=== PATIENT | female | born 1945 | race African-American/Black ===

== ENCOUNTER 2016-09-09 23:15 | Emergency (ER) | payer MEDICARE ==
[2016-09-09 23:43] LABS: BASOPHILS 0.2 % (0-2); EOSINOPHILS 4.3 % (0-7); HEMATOCRIT 33.3 % (36.0-48.0); HEMOGLOBIN 10.8 g/dL (12-16); IMMATURE GRANULOCYTES 0.2 % (0-5); LYMPHOCYTES 43.5 % (15-50); MCH 29.2 pg (26.0-34.0); MCHC 32.4 g/dL (31.0-37.0); MEAN PLATELET VOLUME 10.9 fL (7.4-10.4); MONOCYTES 5.5 % (2-11); NEUTROPHILS 46.3 % (40-80); PLATELET COUNT 204 10x3/uL (130-400); RDW 12.8 % (11.5-14.5); WBC 6.3 10x3/uL (4.8-10.8)
[2016-09-09 23:59] LABS: ALBUMIN 3.7 g/dL (3.4-5.0); ALKALINE PHOSPHATASE 94 U/L (46-116); ALT (SGPT) 15 U/L (10-68); CALC OSMOLALITY 282 mosm/kg (275-300); CALCIUM 8.2 mg/dL (8.5-10.1); CARBON DIOXIDE 28.2 mmol/L (21.0-32.0); CHLORIDE - SERUM 103 mmol/L (98-107); CREATININE - SERUM 0.9 mg/dL (0.6-1.3); GLUCOSE 158 mg/dL (74-106); POTASSIUM - SERUM 3.2 mmol/L (3.5-5.1); PROTEIN - SERUM 7.5 g/dL (6.4-8.2); SODIUM 142 mmol/L (136-145); UREA NITROGEN 5 mg/dL (7-18); eGFR NON AFRICAN AMERICAN 66 mL/min (90-120)
[2016-09-10 00:11] LABS: CHOL - HDL RATIO 3.9 ratio (2.3-4.1); CHOLESTEROL, TOTAL 139 mg/dL (0-200); CKMB 0.8 U/L (0.0-3.6); CREATINE KINASE 178 UL (21-215); HDL CHOLESTEROL 36 mg/dL (32-96); LDL CHOLESTEROL 68 mg/dL (0-100); LDL-HDL RATIO 1.9 ratio (1.5-3.5); TRIGLYCERIDE 176 mg/dL (30-200); TROPONIN-I < 0.017 ng/mL (0.000-0.060)
== END 2016-09-10 00:59 | disposition home or self-care (01) ==
LOC: D.ER 23:15
PROVIDERS: Emergency Medicine
DX: K29.70 Gastritis, unspecified, without bleeding (principal); R94.31 Abnormal electrocardiogram [ECG] [EKG]; I25.2 Old myocardial infarction; E11.9 Type 2 diabetes mellitus without complications

== ENCOUNTER 2016-12-22 22:24 | Emergency (ER) | payer MEDICARE | END 2016-12-23 00:52 | disposition home or self-care (01) | LOC: D.ER 22:24 | DX: R42 Dizziness and giddiness (principal) ==

== ENCOUNTER 2017-01-04 18:33 | Emergency (ER) | payer MEDICARE ==
[2017-01-04 20:34] LABS: BASOPHILS 0.2 % (0-2); EOSINOPHILS 1.1 % (0-7); HEMATOCRIT 33.3 % (36.0-48.0); HEMOGLOBIN 10.7 g/dL (12-16); IMMATURE GRANULOCYTES 0.2 % (0-5); LYMPHOCYTES 30.1 % (15-50); MCH 29.5 pg (26.0-34.0); MCHC 32.1 g/dL (31.0-37.0); MCV 91.7 fL (80.0-100.0); MEAN PLATELET VOLUME 10.3 fL (7.4-10.4); MONOCYTES 3.9 % (2-11); NEUTROPHILS 64.5 % (40-80); PLATELET COUNT 187 10x3/uL (130-400); RBC 3.63 10x6/uL (4.00-5.40); RDW 13.1 % (11.5-14.5); WBC 5.4 10x3/uL (4.8-10.8)
[2017-01-04 20:55] LABS: ALBUMIN 3.7 g/dL (3.4-5.0); ANION GAP 11.9 mmol/L (8-16); BILIRUBIN - TOTAL 0.19 mg/dL (0.2-1.3); CALCIUM 8.7 mg/dL (8.5-10.1); CARBON DIOXIDE 29.1 mmol/L (21.0-32.0); PROTEIN - SERUM 7.8 g/dL (6.4-8.2)
== END 2017-01-04 21:11 | disposition home or self-care (01) ==
LOC: D.ER 18:33
PROVIDERS: Emergency Medicine
DX: K21.9 Gastro-esophageal reflux disease without esophagitis (principal)

== ENCOUNTER 2017-05-28 16:21 | Emergency (ER) | payer MEDICARE, MEDICAID ==
[2017-05-28 16:55] LABS: BASOPHILS 0.1 % (0-2); HEMATOCRIT 33.9 % (36.0-48.0); IMMATURE GRANULOCYTES 0.1 % (0-5); LYMPHOCYTES 34.2 % (15-50); MCH 29.9 pg (26.0-34.0); MCHC 32.4 g/dL (31.0-37.0); MCV 92.1 fL (80.0-100.0); MEAN PLATELET VOLUME 10.3 fL (7.4-10.4); MONOCYTES 6.5 % (2-11); NEUTROPHILS 56.1 % (40-80); PLATELET COUNT 209 10x3/uL (130-400); RBC 3.68 10x6/uL (4.00-5.40); RDW 13.4 % (11.5-14.5); WBC 8.1 10x3/uL (4.8-10.8)
[2017-05-28 17:00] LABS: APPEARANCE CLEAR (CLEAR); BILIRUBIN NEGATIVE (NEGATIVE); COLOR YELLOW (YELLOW); GLUCOSE NEGATIVE (NEGATIVE); KETONE NEGATIVE (NEGATIVE); NITRITE NEGATIVE (NEGATIVE); PROTEIN NEGATIVE (NEGATIVE); SPECIFIC GRAVITY 1.005 (1.005-1.020); UROBILINOGEN NORMAL (NORMAL)
[2017-05-28 17:13] LABS: ALBUMIN 3.5 g/dL (3.4-5.0); ANION GAP 11.7 mmol/L (8-16); BILIRUBIN - TOTAL 0.44 mg/dL (0.2-1.3); CALCIUM 8.6 mg/dL (8.5-10.1); CARBON DIOXIDE 29.9 mmol/L (21.0-32.0); CREATININE - SERUM 1.3 mg/dL (0.6-1.3); POTASSIUM - SERUM 3.6 mmol/L (3.5-5.1); PROTEIN - SERUM 7.8 g/dL (6.4-8.2)
== END 2017-05-28 18:39 | disposition home or self-care (01) ==
LOC: D.ER 16:21
PROVIDERS: Family Medicine
DX: R10.9 Unspecified abdominal pain (principal); K29.00 Acute gastritis without bleeding; K21.9 Gastro-esophageal reflux disease without esophagitis

== ENCOUNTER 2017-08-08 00:27 | Emergency (ER) | payer MEDICARE, MEDICAID ==
[~2017-08-08] VITALS: Ht 162.6 cm; Wt 92.1 kg
[2017-08-08 00:36] VITALS: Ht 162.6 cm; Wt 92.1 kg
[2017-08-08] MEDS ORDERED: PLAVIX75 MG PO (00:38)
[2017-08-08 01:51] VITALS: BP 162/76
== END 2017-08-08 01:55 | disposition home or self-care (01) ==
LOC: D.ER 00:27
DX: K59.00 Constipation, unspecified (principal); R10.30 Lower abdominal pain, unspecified; H40.9 Unspecified glaucoma

== ENCOUNTER 2017-08-25 11:01 | Emergency (ER) | payer MEDICARE, MEDICAID ==
[~2017-08-25] VITALS: Ht 162.6 cm; Wt 93.6 kg
[~2017-08-25 11:01] MED LIST: PLAVIX75 MG PO
[2017-08-25 11:18] VITALS: BP 116/86; Ht 162.6 cm; Wt 93.6 kg
[2017-11-05 23:11] VITALS: Ht 162.6 cm; Wt 93.6 kg
== END 2017-08-25 12:47 | disposition left against medical advice (07) ==
LOC: D.ER 11:01
DX: M79.602 Pain in left arm (principal)

== ENCOUNTER 2017-08-30 10:46 | Emergency (ER) | payer MEDICARE, MEDICAID ==
[~2017-08-30] VITALS: Ht 162.6 cm; Wt 93.6 kg
[2017-08-30 10:52] VITALS: Ht 162.6 cm; Wt 93.6 kg
[2017-08-30 11:10] LABS: APPEARANCE HAZY (CLEAR); COLOR YELLOW (YELLOW); SPECIFIC GRAVITY 1.005 (1.005-1.020)
[2017-08-30 11:11] LABS: BILIRUBIN NEGATIVE (NEGATIVE); GLUCOSE NEGATIVE (NEGATIVE); KETONE NEGATIVE (NEGATIVE); NITRITE NEGATIVE (NEGATIVE); PROTEIN NEGATIVE (NEGATIVE); UROBILINOGEN NORMAL (NORMAL)
[2017-08-30 11:22] LABS: BASOPHILS 0.2 % (0-2); EOSINOPHILS 3.3 % (0-7); HEMATOCRIT 33.5 % (36.0-48.0); IMMATURE GRANULOCYTES 0.2 % (0-5); LYMPHOCYTES 40.8 % (15-50); MCH 29.6 pg (26.0-34.0); MCHC 32.8 g/dL (31.0-37.0); MCV 90.3 fL (80.0-100.0); MEAN PLATELET VOLUME 10.7 fL (7.4-10.4); MONOCYTES 5.9 % (2-11); NEUTROPHILS 49.6 % (40-80); PLATELET COUNT 211 10x3/uL (130-400); RBC 3.71 10x6/uL (4.00-5.40); RDW 13.2 % (11.5-14.5); WBC 6.1 10x3/uL (4.8-10.8)
[2017-08-30 11:34] LABS: ALBUMIN 3.7 g/dL (3.4-5.0); ANION GAP 8.3 mmol/L (8-16); BILIRUBIN - TOTAL 0.29 mg/dL (0.2-1.3); CARBON DIOXIDE 32.1 mmol/L (21.0-32.0); POTASSIUM - SERUM 3.4 mmol/L (3.5-5.1)
[2017-08-30] MEDS ORDERED: OMEPRAZOLE40 MG PO (13:41)
[2017-08-30 13:47] LABS: CKMB 0.9 U/L (0.0-3.6); TROPONIN-I < 0.017 ng/mL (0.000-0.060)
[2017-08-30 14:34] VITALS: BP 142/79
== END 2017-08-30 14:35 | disposition home or self-care (01) ==
LOC: D.ER 10:46
PROVIDERS: Family Medicine
DX: K21.9 Gastro-esophageal reflux disease without esophagitis (principal); R10.13 Epigastric pain; E11.9 Type 2 diabetes mellitus without complications; I10 Essential (primary) hypertension; Z85.038 Personal history of other malignant neoplasm of large intestine; Z85.048 Personal history of other malignant neoplasm of rectum, rectosigmoid junction, and anus

== ENCOUNTER 2017-09-28 23:12 | Observation (INO) | payer MEDICARE, MEDICAID ==
[~2017-09-28] VITALS: Ht 162.6 cm; Wt 95.9 kg
--- NOTE | ~2017-09-28 | OP ---
PATIENT NAME: MORRO KOLB MEDICAL RECORD: [id number] :49 LOCATION:D.M2 D.2137 ADMISSION DATE:09/29/17 SURGEON: KIET ARAMBULA MD DATE OF OPERATION: 09/29/2017 PROCEDURES: 1. PTCA stent LAD diagonal. 2. Left heart catheterization. 3. Selective coronary angiography. 4. Left ventriculogram. INDICATION: Angina and coronary artery disease. PROCEDURE PERFORMED: After informed consent was obtained and after a detailed description of risks, benefits as well as alternative therapies, the patient elected to proceed with angiogram and angioplasty. The right femoral area was prepped and draped in normal sterile fashion. Right femoral artery was cannulated via modified Seldinger technique with placement of 6-Kazakh sheath. All catheters exchanged through this sheath. FINDINGS: The left ventriculogram was performed in a standard 30-degree JAVIER view, reveals good cardiac wall motion throughout all segments. Overall ejection fraction estimated 60%. SELECTIVE CORONARY ANGIOGRAPHY: 1. Left main showed no significant angiographic disease. 2. Left anterior descending has previously placed stents, these are widely patent. There is a relatively large diagonal that has 95% stenosis at the proximal aspect. 3. Left circumflex has moderate irregularities, but no flow-limiting stenosis. 4. Right coronary artery has 80+ percent stenosis in the proximal aspect. PTCA STENT OF THE LAD DIAGONAL: The stent used is a 2.5 x 15 mm Mata. Result was 0% residual stenosis. OVERALL IMPRESSION: Successful percutaneous transluminal coronary angioplasty stent of the left anterior descending diagonal going from 95% initial stenosis to 0% residual. TRANSINT:[id number] Voice Confirmation ID: [id number] DOCUMENT ID: [id number] KIET ARAMBULA MD at 1752 CC: [id number] DICTATION DATE: 09/29/17 1331 FIELD SALES TRAINER: 09/29/17 1336 DIS IN 09/29/17 [place] [address] [place] [id number]
--- NOTE | ~2017-09-28 | DS ---
PATIENT:MORRO GOODE :49 MEDICAL RECORD: [id number] DISCHARGE SUMMARY ADMISSION DATE: 09/29/17 DISCHARGE DATE: 09/29/17 DISCHARGE DIAGNOSES: 1. Angina. 2. Coronary artery disease. 3. Percutaneous transluminal coronary angioplasty stent left anterior descending diagonal this admission. 4. Hypertension. 5. Hyperlipidemia. HOSPITAL COURSE: Mrs. Goode presents with unstable anginal symptomatology, found to have significant disease of the LAD, diagonal and RCA, underwent successful PTCA stent of the LAD diagonal. She was discharged home with the addition of aspirin and Plavix to her medical regimen. She will follow up for PTCA stent of the RCA on Monday. TRANSINT:[id number] Voice Confirmation ID: [id number] DOCUMENT ID: [id number] KIET ARAMBULA MD at 1752 CC: [id number] DICTATION DATE: 09/29/17 1330 [employer] LABORATORY DIRECTOR: 09/29/17 1337 DIS IN 09/29/17 [place] [address] [place] [address]
--- NOTE | ~2017-09-28 | HEMODYNAMI ---
PATIENT:MORRO KOLB MEDICAL RECORD: [id number] : 49 [facility] AD[facility]ION DATE: 09/29/17 Generatedon:09/29/201713:30 Patient name: MORRO KOLB Patient #: [id number] SSN: : 1945 Date of study: 09/29/2017 Page: Of Hemodynamic Procedure Report Patient Data Patient Demographics Procedure consent was obtained First Name: MORRO Gender: Female Last Name: CORTES : 1945 [facility] Initial: J Age: 72 year(s) Patient #: [id number] Race: Black Additional ID: [id number] Contact details [address]: [address] [place] [address] State: [place] City: [place] Zip code: [address] Past Medical History Allergies Allergen Reaction Date Comments Reported Codeine 09/29/2017 Admission Admission Data Admission Date: 09/29/2017 Admission Time: 0:11 Room #: D2137 Lab Results Lab Result Date: 09/29/2017 Lab Result Time: 0:00 Biochemistry Name Units Result Min Max BUN mg/dl 7 --(*---)-- 7 18 Creatinine mg/dl 0.9 --(-*--)-- 0.6 1.3 CBC Name Units Result Min Max Hemoglobin g/dl 10.8 *-(----)-- 13.5 17.5 Procedure Procedure Types Cath Procedure Diagnostic Procedure [facility] w/Coronaries Procedure Description Procedure Date Procedure Date: 09/29/2017 Procedure Start Time: 13:11 Procedure End Time: 13:27 Procedure Staff Name Function Daniel Ruiz MD Performing Physician Luz Maria Varghese RT Scrub Jason Cintron RN Nurse Procedure Data Cath Procedure Fluoroscopy Diagnostic fluoroscopy Total fluoroscopy Time: 6 time: 6 min min Diagnostic fluoroscopy Total fluoroscopy dose: 873 dose: 873 mGy mGy Contrast Material Contrast Material Type Amount (ml) Isovue 300 100 Entry Location Entry Primary Successful Side Size Upsize Upsize Entry Closure Succes sful Closure Location (Fr) 1 (Fr) 2 (Fr) Remarks Device Remarks Radial Right 6 Fr artery Short Femoral Right 6 Fr Exoseal artery Short Diagnostic catheters Device Type Used For End Catheter Placement DIAGNOSTIC [place] 110cm 5 LV Angiography Fr catheter ([id number]) Procedure Complications No complications Procedure Medications Medication Administration Route Dosage 0.9% NaCl I.V. 100 ml/hr Oxygen etCO2 Nasal cannula 2 l/min Heparin Flush Bag added to field 2 bags (1000units/500ml NS) Lidocaine 2% added to field 20 Radial Cocktail added to field 1 syringe (Verapomil 2mg/Nitro 400mcg/Heparin 1500units) Versed I.V. 1 mg Fentanyl I.V. 50 mcg Radial Cocktail I.A. 1 syringe (Verapomil 2mg/Nitro 400mcg/Heparin 1500units) Heparin Bolus I.V. 4000 units Plavix P.O. 75 mg Hemodynamics Rest HGB: 10.8 (g/dl) Heart Rate: 60 (bpm) Snapshots Pre Cath Intra NCS Post Cath Vital Signs Time Heart Resp SPO2 etCO2 NIBP (mmHg) Rhythm Pain Sedation Rate (ipm) (%) (mmHg) Status Level (bpm) 13:06:04 72 17 99 37.4 146/78(124) NSR 0 (11) 10(A) , No pain 13:10:18 83 16 99 32.2 143/84(119) NSR 0 (11) 10(A) , No pain 13:14:28 87 17 99 32.9 135/84(101) NSR 0 (11) 9(A) , No pain 13:18:42 86 13 100 31.4 131/79(113) NSR 0 (11) 9(A) , No pain 13:22:54 84 18 100 32.2 134/81(111) NSR 0 (11) 9(A) , No pain 13:27:06 87 14 100 35.9 143/84(117) NSR 0 (11) 10(A) , No pain Medications Time Medication Route Dose Verified Delivered Reason Not es Effectiveness by by 13:05:24 0.9% NaCl I.V. 100 Jason Jason Per physician ml/hr Saida Cintron RN RN 13:05:34 Oxygen etCO2 2 l/min Jason Jason Per physician Nasal Saida Cintron cannula RN RN 13:05:44 Heparin Flush added 2 bags Jason Jason used for Bag to Saida Cintron procedure (1000units/500ml field RN RN NS) 13:05:54 Lidocaine 2% added 20ml Jason Jason for local to vial Lorigan Saida anesthetic field RN RN 13:06:08 Radial Cocktail added 1 Jason Jason used for (Verapomil to syringe Saida Cintron procedure 2mg/Nitro field RN RN 400mcg/Heparin 1500units) 13:10:34 Versed I.V. 1 mg Jason Jason for sedation Saida Cintron RN RN 13:10:43 Fentanyl I.V. 50 mcg Jason Jason for sedation Saida Cintron RN RN 13:11:53 Radial Cocktail I.A. 1 Jason Dnaiel for (Verapomil syringe Saida Ruiz MD vasodilation 2mg/Nitro RN 400mcg/Heparin 1500units) 13:21:14 Heparin Bolus I.V. 4000 Jasonflorentin Ortizrey for units Saida Ruiz MD anticoagulation RN 13:27:16 Plavix P.O. 75 mg Jason Sanchez for Saida Ruiz MD antiplatelet RN therapy Procedure Log Time Note 12:49:39 Informed consent obtained and on chart 12:49:47 Diagnostic Cath Status : Elective 12:50:12 Jason Cintron RN sent for patient. Start room use. 12:50:12 Time tracking: Regular hours (M-F 7:00 - 5:00) 12:50:17 Plan of Care:Hemodynamics will remain stable., Cardiac rhythm will remain stable., Comfort level will be maintained., Respiratory function will remain adequate., Patient/ family verbilizes understanding of procedure., Procedure tolerated without complication., Recovers from procedure without complications.. 12:50:42 Micah Suit monitor 12:53:40 Patient received from Med II to CCL 2 Alert and oriented. Tansferred to table in Supine position. 12:53:41 Warm blankets applied, and garfield hugger turned on for patient comfort. 12:53:41 Correct patient and procedure confirmed by team. 12:53:47 ECG and BP/O2 sat monitors applied to patient. 13:04:55 Baseline sample Acquired. 13:04:55 Vital chart was started 13:04:58 Rhythm: sinus rhythm 13:04:59 Full Disclosure recording started 13:05:24 0.9% NaCl 100 ml/hr I.V. was administered by Jason Cintron RN; Per physician; 13:05:34 Oxygen 2 l/min etCO2 Nasal cannula was administered by Jason Cintron RN; Per physician; 13:05:44 Heparin Flush Bag (1000units/500ml NS) 2 bags added to field was administered by Jason Cintron RN; used for procedure; 13:05:54 Lidocaine 2% 20ml vial added to field was administered by Jason Cintron RN; for local anesthetic; 13:06:08 Radial Cocktail (Verapomil 2mg/Nitro 400mcg/Heparin 1500units) 1 syringe added to field was administered by Jason Cintron RN; used for procedure; 13:08:07 H&P Date Dictated: 10/30/2017 Within 30 days and on chart.. 13:08:08 Pre-procedure instructions explained to patient. 13:08:08 Pre-op teaching completed and patient verbalized understanding. 13:08:11 Family unavailable. 13:08:13 Patient NPO since Midnight. 13:08:23 Patient allergic to Codeine 13:08:26 Is the patient allergic to Iodine/contrast media? No. 13:08:35 Is patient on blood thinner?No 13:08:38 ACC The patient was administered the following blood thiners within the last 24 hours: ACCPlavix 13:08:40 Patient diabetic? Yes. 13:08:41 If diabetic: On Metformin? No 13:08:42 ----Pre-sedation anethsthesia assessment.---- 13:08:46 Previous problem with sedation/anesthesia? No ? 13:08:47 Snore? No 13:08:48 Sleep apnea? No 13:08:50 Deviated septum? No 13:08:51 Opens mouth fully? Yes 13:08:52 Sticks out tongue? Yes 13:08:54 Airway obstruction? No ? 13:08:56 Dentures? No ? 13:09:00 Pre procedure: right dorsailis pedis pulse 2+ Normal; easily identifiable; not easily obliterated 13:09:05 Modified Dillon's test Ulnar > 7 seconds. 13:09:11 Patient pain scale 0/10 ?. 13:09:16 IV patent on arrival in right antecubital with 0.9% NaCl at 10ml/hr. 13::38 Lab Result : BUN 7 mg/dl 13::38 Lab Result : Creatinine 0.9 mg/dl 13::38 Lab Result : Hemoglobin 10.8 g/dl 13:09:41 Lab results completed and on chart. 13:09:44 Right Radial & Right Groin area was prepped with chlora-prep and draped in sterile fashion 13:09:45 Alarms reviewed by R. N. 13:09:45 Sharps counted by scrub and verified by R.N. 13:09:46 Physician arrived 13::47 --------ALL STOP TIME OUT------ 13::47 Final Timeout: patient, procedure, and site verified with staff and physician. All members of the team are in agreement. 13:09:49 Right Radial & Right Groin site verified by team. 13:09:52 Physical assessment completed. ASA score P 2 - A patient with mild systemic disease as per Daniel Ruiz MD. 13:09:56 Sedation plan: IV Moderate Sedation Medication:Versed, Fentanyl 13:10:12 jsoeph suit rt monitor 13:10:16 Use device set Radial Dx or PCI 13:10:17 ACIST Syringe (44019) opened to sterile field. 13:10:18 Medline Cath Pack ([id number]) opened to sterile field. 13:10:18 Bag Decanter (2002) opened to sterile field. 13:10:19 DIAGNOSTIC WIRE .035 260cm J wire (235971) opened to sterile field. 13:10:20 ACIST Hand Control (72612) opened to sterile field. 13:10:20 ACIST Manifold (06246) opened to sterile field. 13:10:21 Tegaderm 4 x 4 (1626W) opened to sterile field. 13:10:22 MBrace Wrist Support (886245434) opened to sterile field. 13:10:23 NEEDLE Cook 21G 4cm Radial (A22392) opened to sterile field. 13:10:24 TR BAND Standard (MVG22TGX) opened to sterile field. 13:10:26 SHEATH 6Fr Prelude Radial ([id number]) opened to sterile field. 13:10:31 Procedure started. 13:10:34 Versed 1 mg I.V. was administered by Jason Cintron RN; for sedation; 13:10:43 Fentanyl 50 mcg I.V. was administered by Jason Cintron RN; for sedation; 13:11:08 Local anesthetic to right radial artery with Lidocaine 2% by Daniel Ruiz MD.INITIAL ACCESS ONLY 13:11:19 A 6 Fr Short sheath was inserted into the Right Radial artery 13:11:21 Zero performed for pressure channel P1 13:11:27 Zero performed for pressure channel P1 13:11:30 Zero performed for pressure channel P1 13:11:53 Radial Cocktail (Verapomil 2mg/Nitro 400mcg/Heparin 1500units) 1 syringe I.A. was administered by Daniel Ruiz MD; for vasodilation; 13:12:18 A DIAGNOSTIC [place] 110cm 5 Fr catheter (794749) was advanced over the wire and used for LV Angiography. 13:12:23 LV gram done using JAVIER 13:12:25 LV hemodynamics recorded. 13:12:29 Injector settings: Ml/sec: 5, Volume: 15, 13:12:55 EF : 60 % 13:13:08 LCA angiography performed. 13:13:31 RCA angiography performed. 13:13:55 Catheter removed. 13:15:51 6 Fr ebu 3.5 guide catheter was inserted over the wire 13:16:07 GUIDE 6FR EBU 3.5 catheter (NS5PNF68) opened to sterile field. 13:16:36 SHEATH 6Fr Prelude ([id number]) opened to sterile field. 13:16:37 INFLATOR Merit BasixCompak (RA9963) opened to sterile field. 13:17:21 CHOICE PT Extra Support 182cm wire ([id number]) opened to sterile field. 13:17:35 Guide catheter removed. 13:17:41 Local anesthetic to right femoral artery with Lidocaine 2% by Daniel Ruiz MD.ADDITIONAL ACCESS 13:17:51 A 6 Fr Short sheath was inserted into the Right Femoral artery 13:18:04 6 Fr EBU 3.5 guide catheter was inserted over the wire 13:18:31 Guide catheter removed. 13:18:53 GUIDE 6FR EBU 4.0 guide catheter (EN0DHO71) opened to sterile field. 13:19:10 6 Fr EBU 4 guide catheter was inserted over the wire 13:20:18 CPTES wire advanced. 13:21:14 Heparin Bolus 4000 units I.V. was administered by Daniel Ruiz MD; for anticoagulation; 13:22:37 Inflate balloon Inflation number: 1 A EUPHORA 2.5 x 15 Balloon ([id number]) was prepped and advanced across the 1st Diag, then inflated to 9 RED for 0:21 (min:sec). 13:23:24 Balloon removed over the wire. 13:24:26 Place stent Inflation Number: 2 A BONILLA RX 2.5 x 15 stent ([id number]) was prepped and advanced across the 1st Diag. The stent was deployed at 11 RED for 0:22 (min:sec). 13:24:43 Inflation number: 3 The stent balloon was then re-inflated across the 1st Diag to 17 RED for 0:16 (min:sec). 13:24:56 Stent catheter was removed intact over wire. 13:24:57 Wire removed. 13:24:58 Guide catheter removed. 13:25:05 Contrast amount:Isovue 300 100ml. 13:25:22 Sheath removed intact; hemostasis achieved with Exoseal to the Right Femoral artery. 13:25:25 Procedure ended.(Physican Out) 13:25:39 Fluoroscopy time 06.00 minutes. 13:25:45 Fluoroscopy dose: 873 mGy 13:25:45 Flurop Dose total: 873 13:25:46 Sharps counted by scrub and verified by R.N. 13:25:47 Insertion/operative site no bleeding no hematoma. 13:25:51 Post-op/insertion site Right Femoral artery dressed using a 4 x 4 and Tegaderm. 13:26:51 Post right femoral artery:stable 13:26:53 Post Procedure Pulses reassessed and unchanged 13:26:55 Post procedure: right dorsailis pedis pulse 1+ Palpable, but thready & weak; easily obliterated. 13:27:00 Post procedure rhythm: sinus rhythm 13:27:02 Post procedure instruction explained to patient.Patient verbalizes understanding. 13:27:04 Procedure and supply charges have been captured, reviewed, submitted and are correct. 13:27:16 Plavix 75 mg P.O. was administered by Daniel Ruiz MD; for antiplatelet therapy; 13:27:26 EXOSEAL 6Fr (EX600) opened to sterile field. 13:27:35 Procedure Complication : No complications 13:27:38 Vital chart was stopped 13:27:38 See physician's report for complete and final results. 13:27:41 Report given to Pre/Post Procedure Room. 13:27:44 Patient transfered to Pre/Post Procedure Room with Stretcher. 13:27:46 Procedure ended. 13:27:46 Full Disclosure recording stopped 13:27:49 End room use (Document Last) 13:27:53 ACC-PCI Only Patient was given prescriptions, or instructed by Daniel Ruiz MD to start/continue the following medications upon discharge: Plavix Intervention Summary Intervention Notes Time ActionType Lesion and Equipment Used Action# Pressure Duration Attributes 13:22:37 Inflate 1st Diag EUPHORA 2.5 x 1 9 00:21 balloon 15 Balloon ([id number]) 13:24:26 Place stent 1st Diag BONILLA RX 2.5 x 2 11 00:23 15 stent ([id number]) 13:24:43 Reinflate 1st Diag BONILLA RX 2.5 x 3 17 00:16 stent 15 stent balloon ([id number]) Device Usage Item Name Manufacture Quantity Catalog Number Hospital Part Current Minimal Lot# / Charge Number Stock Stock Serial# Code ACIST Syringe Acist 1 91025 474392 [id number] [id number] 20 (95572) Medical Systems Inc Medline Cath Cardinal 1 [id number] 502627 39519 679753 5 Pack Health ([id number]) Bag Decanter Microtek 1 2001S 052008 85374 365588 5 () Medical Inc. DIAGNOSTIC WIRE [place] 1 501582 077873 064793 419212 30 .035 260cm J wire (503595) ACIST Hand Acist 1 18109 171912 560815 745290 5 Control (32319) Medical Systems Inc ACIST Manifold Acist 1 97006 417234 678474 242236 5 (80325) Medical Systems Inc Tegaderm 4 x 4 3M 1 1626W 658536 803798 576432 5 (1626W) MBrace Wrist Advanced 1 140-0250-00 517605 58777 757925 5 Support Vascular ([id number]) Dynamics NEEDLE Cook 21G Cook Medical 1 O24663 735323 017433 411324 5 4cm Radial (I91261) TR BAND Terumo 1 OPR17-FXK 289059 629052 531375 40 Standard (UIW75BUP) SHEATH 6Fr Merit 1 [id number] 658653 481464 166316 5 Prelude Radial Medical ([id number]) DIAGNOSTIC Terumo 1 40-5013 526248 142170 563899 5 [place] 110cm 5 Fr catheter (524535) GUIDE 6FR EBU Medtronic 1 [id number] 877213 06454 972450 3 3.5 catheter (ML6ZNF67) SHEATH 6Fr Merit 1 [id number] 453191 191013 798579 5 Prelude Medical ([id number]) INFLATOR Merit Merit 1 TQ9888 322949 153338 057036 15 FreeCharge Medical (UH5679) CHOICE PT Extra [place] 1 [id number] 844651 123680 411896 5 Support 182cm Scientific wire ([id number]) GUIDE 6FR EBU Medtronic 1 [id number] 411532 67076 300749 1 4.0 guide catheter (KK9ZDY12) EUPHORA 2.5 x Medtronic 1 [id number] 812719 146104 208075 5 [id number] 15 Balloon ([id number]) BONILLA RX 2.5 x Medtronic 1 [id number] 253970 5818635 704929 5 [id number] 15 stent ([id number]) EXOSEAL 6Fr Cardinal 1 EX600 859219 778358 245861 10 (EX600) Health Signature Audit [place] Stage Time Signature Unsigned Intra-Procedure 09/29/2017 Luz Maria Varghese 1:30:10 PM RT(R) [facility] [address] [place] [address]
[~2017-09-28 23:12] MED LIST changes: +OMEPRAZOLE40 MG PO
[2017-09-28 23:29] LABS: HEMATOCRIT 32.2 % (36.0-48.0); HEMOGLOBIN 10.8 g/dL (12-16); LYMPHOCYTES 42.8 % (15-50); MCH 29.7 pg (26.0-34.0); MCHC 33.5 g/dL (31.0-37.0); MCV 88.5 fL (80.0-100.0); MEAN PLATELET VOLUME 9.9 fL (7.4-10.4); NEUTROPHILS 48.2 % (40-80); PLATELET COUNT 210 10x3/uL (130-400); RBC 3.64 10x6/uL (4.00-5.40); RDW 12.5 % (11.5-14.5); WBC 6.2 10x3/uL (4.8-10.8)
[2017-09-28 23:45] LABS: ALBUMIN 3.7 g/dL (3.4-5.0); ALKALINE PHOSPHATASE 105 U/L (46-116); ALT (SGPT) 16 U/L (10-68); BILIRUBIN - TOTAL 0.22 mg/dL (0.2-1.3); CALC OSMOLALITY 281 mosm/kg (275-300); CALCIUM 8.4 mg/dL (8.5-10.1); CARBON DIOXIDE 31.8 mmol/L (21.0-32.0); CHLORIDE - SERUM 102 mmol/L (98-107); CREATININE - SERUM 0.9 mg/dL (0.6-1.3); GLUCOSE 156 mg/dL (74-106); POTASSIUM - SERUM 3.3 mmol/L (3.5-5.1); PROTEIN - SERUM 7.8 g/dL (6.4-8.2); SODIUM 141 mmol/L (136-145); UREA NITROGEN 7 mg/dL (7-18); eGFR NON AFRICAN AMERICAN 66 mL/min (90-120)
[2017-09-29] VITALS (9 sets, daily range): BP systolic 128–161; BP diastolic 63–95; Ht 162.6 cm; Wt 95.9 kg
[2017-09-29 00:04] LABS: CREATINE KINASE 305 UL (21-215)
[2017-09-29 00:08] LABS: TROPONIN-I < 0.017 ng/mL (0.000-0.060)
[2017-09-29 00:09] LABS: CKMB 2.4 U/L (0.0-3.6)
[2017-09-29] MEDS ORDERED: GLUCOPHAGE500 MG PO (03:36)
[2017-09-29] MEDS ORDERED: TENORMIN50 MG PO (03:37)
[2017-09-29 08:41] LABS: BASOPHILS 0.4 % (0-2); EOSINOPHILS 4.6 % (0-7); HEMATOCRIT 30.9 % (36.0-48.0); IMMATURE GRANULOCYTES 0.2 % (0-5); LYMPHOCYTES 45.2 % (15-50); MCH 29.4 pg (26.0-34.0); MCHC 32.4 g/dL (31.0-37.0); MEAN PLATELET VOLUME 10.8 fL (7.4-10.4); MONOCYTES 6.5 % (2-11); NEUTROPHILS 43.1 % (40-80); PLATELET COUNT 197 10x3/uL (130-400); WBC 4.8 10x3/uL (4.8-10.8)
[2017-09-29 08:52] LABS: ANION GAP 13.6 mmol/L (8-16); CALCIUM 8.1 mg/dL (8.5-10.1); CARBON DIOXIDE 26.8 mmol/L (21.0-32.0); CREATININE - SERUM 0.9 mg/dL (0.6-1.3); POTASSIUM - SERUM 3.4 mmol/L (3.5-5.1)
[2017-09-29 08:55] LABS: MCV 90.9 fL (80.0-100.0)
[2017-09-29] MEDS ORDERED: ASPIRIN81 MG PO (16:23)
== END 2017-09-29 21:00 | disposition home or self-care (01) ==
LOC: D.ER 23:12 → D.M2 09-29 00:11 → OBSVTIME 09-29 00:11 → D.EDHOLD 09-29 00:11 → D.M2 09-29 02:24
PROVIDERS: Emergency Medicine; Internal Medicine Interventional Cardiology
DX: I25.110 Atherosclerotic heart disease of native coronary artery with unstable angina pectoris (principal); I10 Essential (primary) hypertension; E78.5 Hyperlipidemia, unspecified; E11.9 Type 2 diabetes mellitus without complications; Z01.812 Encounter for preprocedural laboratory examination
CPT/HCPCS: 93458; C9600

== ENCOUNTER 2017-10-02 08:45 | Outpatient (CLI) | payer MEDICARE, MEDICAID ==
[~2017-10-02] VITALS: Ht 162.6 cm; Wt 93.6 kg
--- NOTE | ~2017-10-02 | HP ---
PATIENT: MORRO GOODE MEDICAL RECORD: [id number] ACCOUNT: [id number] LOCATION:[facility] : 49 ADMISSION DATE: 10/02/17 HISTORY AND PHYSICAL EXAMINATION DIAGNOSES: 1. Angina. 2. Coronary artery disease. 3. Hypertension. 4. Hyperlipidemia. HISTORY OF PRESENT ILLNESS: Ms. Goode presents with anginal symptomatology, found to have 2-vessel coronary artery disease of the LAD and RCA, underwent successful PTCA and stent of the LAD. He is now brought back for PTCA and stent of the RCA. PHYSICAL EXAMINATION: GENERAL APPEARANCE: Well nourished, well developed, appears stated age. Level of distress, comfortable. PSYCHIATRIC: Mental status, alert, normal affect. Orientation, oriented to time, place and person. EYES: Lids and conjunctivae, noninjected. No discharge, no pallor. ENT: Lips, teeth, gums, normal dentition. Oropharynx, no cyanosis, no pallor. NECK: Carotid arteries, bilateral normal upstroke, no bruits, no thrills. JUGULAR VEINS: No jugular venous pressure or distention. CERVICAL LYMPH NODES: Nontender, nonenlarged. THYROID: Not enlarged. Nontender. No nodules. LUNGS: Respiratory effort, unlabored. CHEST: Normal curvature. No thoracic deformity. No chest wall tenderness. Percussion, resonant. Auscultation, clear. No wheezes, no rales, no rhonchi. CARDIOVASCULAR: Precordial exam, nondisplaced. No heaves or pericardial thrills. Rate and rhythm, regular. Heart sounds, normal S1, normal S2. No S3, no gallop, no rub. Systolic murmur, not heard. Diastolic murmur, not heard. EXTREMITIES: No cyanosis, no edema. Peripheral pulses, full and equal in all extremities, except as noted. No bruits appreciated. ABDOMEN: Soft, nondistended. Normal aorta. No bruit. Nontender. No masses. Liver, nontender, no hepatomegaly. Spleen, nontender, no splenomegaly. MUSCULOSKELETAL: No joint tenderness. No joint swelling. No erythema. NEUROLOGICAL: Normal gait, normal strength, normal tone. SKIN: Warm and dry. REVIEW OF SYSTEMS: The patient reports easy bruising but reports no swollen glands. The patient reports no fever, no night sweats, no significant weight gain, no significant weight loss. No significant exercise tolerance. The patient reports no dry eyes, no irritation, no vision change. Patient reports no difficulty hearing and no ear pain. Patient reports no frequent nose bleeds or nose and sinus problems. Patient reports on arm pain on exertion. No shortness of breath while lying down. No history of heart murmur. Patient reports no cough, no wheezing or coughing up blood. Patient reports no abdominal pain, no vomiting. Normal appetite. No diarrhea and not vomiting blood. No nausea and no constipation. Patient reports no incontinence. No difficulty urinating. No hematuria. No increased frequency. Patient reports no muscle aches. No weakness, no arthralgias, no back pain. No swelling of the extremities. Patient reports no abnormal mole, no jaundice, no rashes. Reports no loss of consciousness. No weakness and no numbness. No seizures, dizziness, HISTORY AND PHYSICAL [id number] MORRO GOODE or headaches. The patient reports no depression, no sleep disturbance, feeling safe in a relationship and no alcohol abuse. Patient reports on fatigue. Reports no runny nose or sinus pressure. No itching, no hives, and no frequent sneezing. OVERALL IMPRESSION: Anginal symptomatology with significant disease of the right coronary artery. We will proceed with percutaneous transluminal coronary angioplasty and stent of the right coronary artery. TRANSINT:[id number] Voice Confirmation ID: [id number] DOCUMENT ID: [id number] KIET ARAMBULA MD at 1752 CC: [id number] DICTATION DATE: 10/02/17 1003 DRUM DYEING MACHINE OPERATOR: 10/02/17 1127 DEP CLI 10/02/17 [place] [id number]
--- NOTE | ~2017-10-02 | OP ---
PATIENT NAME: MORRO KOLB MEDICAL RECORD: [id number] :49 LOCATION:D.CAT ADMISSION DATE: SURGEON: KIET ARAMBULA MD DATE OF OPERATION: 10/02/2017 PROCEDURES: 1. PTCA stent RCA. 2. Selective coronary angiography. INDICATION: Angina and coronary artery disease. PROCEDURE IN DETAIL: After informed consent was obtained and after a detailed description of the risks, benefits as well as alternative therapies, the patient elected to proceed with angiogram and angioplasty. The left femoral area was prepped and draped in normal sterile fashion. Left femoral artery was cannulated via modified Seldinger technique with placement of 6-Czech sheath. All catheters exchanged through this sheath. FINDINGS: The right coronary artery has 75% to 80% stenosis proximally. This was addressed with a 3.0 x 15 mm [place] stent. Result was 0% residual stenosis. OVERALL IMPRESSION: Successful percutaneous transluminal coronary angioplasty stent of the right coronary artery going from 75% to 80% initial stenosis to 0% residual. TRANSINT:[id number] Voice Confirmation ID: [id number] DOCUMENT ID: [id number] KIET ARAMBULA MD at 1752 CC: [id number] DICTATION DATE: 10/02/17 1243 REPAIR MECHANIC: 10/02/17 1301 DEP CLI 10/02/17 [place] [id number] [place] [address]
--- NOTE | ~2017-10-02 | HEMODYNAMI ---
PATIENT:MORRO KOLB MEDICAL RECORD: [id number] : 49 LOCATION:D.CAT ADMISSION DATE: 10/02/17 Generatedon:10/02/201712:43 Patient name: MORRO KOLB Patient #: [id number] SSN: : 1945 Date of study: 10/02/2017 Page: Of Hemodynamic Procedure Report Patient Data Patient Demographics Procedure consent was obtained First Name: MORRO Gender: Female Last Name: CORTES : 1945 Middle Initial: J Age: 72 year(s) Patient #: [id number] Race: Black Additional ID: [id number] Contact details [address]: [address] [place] [address] State: [place] City: [place] Zip code: [address] Past Medical History Allergies Allergen Reaction Date Comments Reported Codeine 09/29/2017 Other allergy 10/02/2017 codeine Admission Admission Data Admission Date: 10/02/2017 Admission Time: 8:45 Admit Source: Other Lab Results Lab Result Date: 10/02/2017 Lab Result Time: 10:00 Biochemistry Name Units Result Min Max BUN mg/dl 10 --(-*--)-- 7 18 Creatinine mg/dl 1.1 --(--*-)-- 0.6 1.3 CBC Name Units Result Min Max Hematocrit % 33.9 *-(----)-- 42 54 Hemoglobin g/dl 11 *-(----)-- 13.5 17.5 Procedure Procedure Types Cath Procedure PCI Procedure Coronary Stent Coronary Stent Initial Procedure Description Procedure Date Procedure Date: 10/02/2017 Procedure Start Time: 12:34 Procedure End Time: 12:42 Procedure Staff Name Function Daniel Ruiz MD Performing Physician Javad Lee RT Monitor Amber Kennedy RT Scrub Jason Cintron RN Nurse Procedure Data Cath Procedure Fluoroscopy Diagnostic fluoroscopy Total fluoroscopy Time: 1.1 time: 1.1 min min Diagnostic fluoroscopy Total fluoroscopy dose: dose: 48.35 mGy 48.35 mGy Contrast Material Contrast Material Type Amount (ml) Isovue 300 21 Entry Location Entry Primary Successful Side Size Upsize Upsize Entry Closure Succes sful Closure Location (Fr) 1 (Fr) 2 (Fr) Remarks Device Remarks Femoral Left 6 Fr Exoseal artery Short Estimated blood loss: 10 ml Procedure Complications No complications Procedure Medications Medication Administration Route Dosage 0.9% NaCl I.V. 100 ml/hr Oxygen etCO2 Nasal cannula 2 l/min Heparin Flush Bag added to field 2 bags (1000units/500ml NS) Lidocaine 2% added to field 20 Versed I.V. 2 mg Fentanyl I.V. 100 mcg Heparin Bolus I.V. 4000 units Plavix P.O. 75 mg Hemodynamics Rest HGB: 11 (g/dl) Heart Rate: 84 (bpm) Snapshots Pre Cath Intra NCS Post Cath Vital Signs Time Heart Resp SPO2 etCO2 NIBP (mmHg) Rhythm Pain Sedation Rate (ipm) (%) (mmHg) Status Level (bpm) 12:30:23 82 17 99 0 172/101(121) NSR 0 (11) 10(A) , No pain 12:34:56 74 15 100 36.1 157/85(131) NSR 0 (11) 10(A) , No pain 12:39:24 79 17 100 35.4 149/84(120) NSR 0 (11) 9(A) , No pain Medications Time Medication Route Dose Verified Delivered Reason Notes Effectiveness by by 12:29:45 0.9% NaCl I.V. 100 Jason Jason Per physician ml/hr Saida Cintron RN RN 12:29:57 Oxygen etCO2 2 Jason Jason Per physician Nasal l/min Saida Cintron cannula RN RN 12:30:07 Heparin Flush added 2 Jason Jason used for Bag to bags Saida Cintron procedure (1000units/500ml field RN RN NS) 12:30:19 Lidocaine 2% added 20ml Jason Jason for local to vial Saida Cintron anesthetic field RN RN 12:32:40 Plavix P.O. 75 mg Jason Jason for Lorrosa m Cintron antiplatelet RN RN therapy 12:33:58 Versed I.V. 2 mg Jason Jason for anxiety Saida Cintron RN RN 12:34:07 Fentanyl I.V. 100 Jason Jason for sedation mcg Lorigan Lorigan RN RN 12:37:01 Heparin Bolus I.V. 4000 Jason Gomez for units Saida Cintron anticoagulation RN real estate accountant Log Time Note 12:: Informed consent obtained and on chart 12:: Admit Source: Other 12:10:24 Diagnostic Cath status Elective 12:: Time tracking: Regular hours (M-F 7:00 - 5:00) 12:10:31 Plan of Care:Hemodynamics will remain stable., Cardiac rhythm will remain stable., Comfort level will be maintained., Respiratory function will remain adequate., Patient/ family verbilizes understanding of procedure., Procedure tolerated without complication., Recovers from procedure without complications.. 12::28 H&P Date Dictated: 10/02/2017 New H&P dictated by physician.. 12:11:32 Amber Kennedy RT(R) sent for patient. Start room use. 12:17:01 Patient received from Pre/Post Procedure Room to CCL 3 Alert and oriented. Tansferred to table in Supine position. 12:17:02 Warm blankets applied, and garfield hugger turned on for patient comfort. 12:17:03 Correct patient and procedure confirmed by team. 12:17:03 ECG and BP/O2 sat monitors applied to patient. 12:17:05 Pre-procedure instructions explained to patient. 12:17:05 Pre-op teaching completed and patient verbalized understanding. 12:17:06 Family in waiting room. 12:17:08 Patient NPO since Midnight. 12:17:27 Patient allergic to Other allergycodeine 12:28:54 Vital chart was started 12:28:55 Baseline sample Acquired. 12:28:58 Rhythm: sinus rhythm 12:29:45 0.9% NaCl 100 ml/hr I.V. was administered by Jason Cintron RN; Per physician; 12:29:57 Oxygen 2 l/min etCO2 Nasal cannula was administered by Jason Cintron RN; Per physician; 12:30:01 Full Disclosure recording started 12:30:03 Is the patient allergic to Iodine/contrast media? No. 12:30:04 Is patient on blood thinner?Yes 12:30:07 Heparin Flush Bag (1000units/500ml NS) 2 bags added to field was administered by Jason Cintron RN; used for procedure; 12:30:07 ACC The patient was administered the following blood thiners within the last 24 hours: ACCPlavix 12:30:08 Patient diabetic? No. 12:30:10 Previous problem with sedation/anesthesia? No ? 12:30:11 Snore? No 12:30:12 Sleep apnea? No 12:30:13 Deviated septum? No 12:30:13 Opens mouth fully? Yes 12:30:14 Sticks out tongue? Yes 12:30:15 Airway obstruction? No ? 12:30:17 Dentures? No ? 12:30:19 Lidocaine 2% 20ml vial added to field was administered by Jason Cintron RN; for local anesthetic; 12:30:20 Pre procedure: left dorsailis pedis pulse 2+ Normal; easily identifiable; not easily obliterated 12:30:22 Patient pain scale 0/10 ?. 12:30:26 IV patent on arrival in left forearm with 0.9% NaCl at [facility]. 12:30:58 Lab Result : BUN 10 mg/dl 12:30:58 Lab Result : Creatinine 1.1 mg/dl 12:30:58 Lab Result : Hemoglobin 11 g/dl 12:30:58 Lab Result : Hematocrit 33.9 % 12:31:00 Lab results completed and on chart. 12:31:03 Left groin area was prepped with chlora-prep and draped in sterile fashion 12:31:04 Alarms reviewed by R. N. 12:31:04 Sharps counted by scrub and verified by R.N. 12:31:07 ACIST Syringe (91492) opened to sterile field. 12:31:08 Bag Decanter (2001S) opened to sterile field. 12:31:08 Medline Cath Pack ([id number]) opened to sterile field. 12:31:10 DIAGNOSTIC WIRE .035 260cm J wire (147782) opened to sterile field. 12:31:11 ACIST Hand Control (29694) opened to sterile field. 12:31:12 ACIST Manifold (02022) opened to sterile field. 12:31:13 Tegaderm 4 x 4 (1626W) opened to sterile field. 12:31:36 GUIDE 6FR HS I catheter (LA6HSI) opened to sterile field. 12:31:37 CHOICE PT Extra Support 182cm wire ([id number]) opened to sterile field. 12:31:37 INFLATOR Merit Roberto (GE8396) opened to sterile field. 12::38 SHEATH Prelude 6Fr 0.035 (TTJ-4A-78-035) opened to sterile field. :: Physician arrived : --------ALL STOP TIME OUT------ ::45 Final Timeout: patient, procedure, and site verified with staff and physician. All members of the team are in agreement. 12::46 Left groin site verified by team. 12::49 Physical assessment completed. ASA score P 2 - A patient with mild systemic disease as per Daniel Ruiz MD. 12::51 Sedation plan: IV Moderate Sedation Medication:Versed, Fentanyl 12:32:40 Plavix 75 mg P.O. was administered by Jason Cintron RN; for antiplatelet therapy; 12:33:58 Versed 2 mg I.V. was administered by Jason Cintron RN; for anxiety; 12:34:07 Fentanyl 100 mcg I.V. was administered by Jason Cintron RN; for sedation; 12:34:41 Procedure started. 12::44 Local anesthetic to left femerol artery with Lidocaine 2% by Daniel Ruiz MD.INITIAL ACCESS ONLY 12:34:52 A 6 Fr Short sheath was inserted into the Left Femoral artery 12:35:10 Zero performed for pressure channel P1 12:35:14 Zero performed for pressure channel P1 12:35:19 Zero performed for pressure channel P1 12:35:21 Zero performed for pressure channel P1 12:35:24 Zero performed for pressure channel P1 12:35:28 Zero performed for pressure channel P1 12:35:31 Zero performed for pressure channel P1 12:35:33 Zero performed for pressure channel P1 12:35:36 Zero performed for pressure channel P1 12:35:41 Zero performed for pressure channel P1 12:35:48 Zero performed for pressure channel P1 12:35:53 Zero performed for pressure channel P1 12:35:57 Zero performed for pressure channel P1 12:36:17 6 Fr HSI guide catheter was inserted over the wire 12:36:32 CHOICE PT ES wire advanced. 12:36:49 Wire advanced across lesion. 12:37:01 Heparin Bolus 4000 units I.V. was administered by Jason Cintron RN; for anticoagulation; 12:38:04 Place stent Inflation Number: 1 A BONILLA RX 3.0 x 15 stent ([id number]) was prepped and advanced across the Prox RCA. The stent was deployed at 17 RED for 0:10 (min:sec). 12:38:18 Stent catheter was removed intact over wire. 12:38:19 Wire removed. 12:38:20 Guide catheter removed. 12:38:26 EXOSEAL 6Fr (EX600) opened to sterile field. 12:38:39 Sheath removed intact; hemostasis achieved with Exoseal to the Left Femoral artery. 12:38:40 Procedure ended.(Physican Out) 12:38:50 Fluoroscopy time 01.10 minutes. 12:38:55 Flurop Dose total: 48.35 12:38:55 Fluoroscopy dose: 48.35 mGy 12:39:00 Contrast amount:Isovue 300 21ml. 12:39:01 Sharps counted by scrub and verified by R.N. 12:41:05 Insertion/operative site no bleeding no hematoma. 12:41:10 Post-op/insertion site Left Femoral artery dressed using a 4 x 4 and Tegaderm. 12:41:15 Post left femerol artery:stable, soft, clean and dry 12:41:16 Post Procedure Pulses reassessed and unchanged 12:41:18 Post-procedure physical assessment completed. ASA score P 2 - A patient with mild systemic disease as per Daniel Ruiz MD. 12:41:20 Post procedure rhythm: unchanged. 12:41:23 Estimated blood loss: 10 ml 12:41:25 Post procedure instruction explained to patient.Patient verbalizes understanding. 12:41:25 Patient needs reinforcement of post procedure teaching. 12:41:51 Procedure and supply charges have been captured, reviewed, submitted and are correct. 12:41:52 Procedure Complication : No complications 12:41:55 Vital chart was stopped 12:41:55 See physician's report for complete and final results. 12:41:57 Report given to Pre/Post Procedure Room. 12:41:59 Patient transfered to Pre/Post Procedure Room with Stretcher. 12:42:01 Procedure ended. 12:42:01 Full Disclosure recording stopped 12:42:04 End room use (Document Last) Intervention Summary Intervention Notes Time ActionType Lesion and Equipment Used Action# Pressure Duration Attributes 12:38:04 Place stent Prox RCA BONILLA RX 3.0 x 1 17 00:10 15 stent ([id number]) Device Usage Item Name Manufacture Quantity Catalog Number Hospital Part Current Minimal Lot# / Charge Number Stock Stock Serial# Code ACIST Syringe Acist 1 07176 289813 330629 832017 20 (59794) [employer] Bag Decanter Microtek 1 2001S 517728 11608 271801 5 (2001S) Medical Inc. Medline Cath Cardinal 1 [id number] 039864 18874 594536 5 Pack Health ([id number]) DIAGNOSTIC WIRE [facility] [employer] 1 588700 003436 212799 308161 30 .035 260cm J wire (734472) ACIST Hand Acist 1 57483 417354 030279 376609 5 Control (99225) [employer] Inc ACIST Manifold Acist 1 54120 569786 850112 624074 5 (65849) [employer] Systems Inc Tegaderm 4 x 4 3M 1 1626W 410752 187579 158090 5 (1626W) GUIDE 6FR HS I Medtronic 1 LA6HSI 933040 23964 842249 1 catheter (LA6HSI) CHOICE PT Extra [place] 1 [id number] 262822 815633 527361 5 Support 182cm Scientific wire ([id number]) INFLATOR Merit Merit 1 JO1506 132236 188973 127734 15 BasixCompak Medical ([id number]) SHEATH Prelude Merit 1 [id number] 343865 5468527 189147 5 6Fr 0.035 Medical (BAY-0W-30-035) BONILLA RX 3.0 x Medtronic 1 [id number] 192648 6386673 719222 5 [id number] 15 stent ([id number]) EXOSEAL 6Fr Cardinal 1 EX600 980046 826750 295126 10 (EX600) Health Signature Audit [place] Stage Time Signature Unsigned Intra-Procedure 10/02/2017 Javad Lee 12:43:06 PM RT(R) Signatures Monitor : Javad Lee RT Signature : Date : Time : [facility] [address] [place] [address]
[~2017-10-02 08:45] MED LIST changes: +ASPIRIN81 MG PO; +GLUCOPHAGE500 MG PO; +TENORMIN50 MG PO
[2017-10-02] MEDS ORDERED: TRIAMTERENE-HCT1 TA1 PO (09:26)
[2017-10-02] MEDS ORDERED: GLUCOTROL 5 MG T5 MG PO (09:26)
[2017-10-02] MEDS ORDERED: TOPROL XL25 MG PO (09:27)
[2017-10-02 09:34] VITALS: BP 164/79; Ht 162.6 cm; Wt 93.6 kg
[2017-10-02 10:12] LABS: BASOPHILS 0.3 % (0-2); EOSINOPHILS 3.6 % (0-7); HEMATOCRIT 33.9 % (36.0-48.0); IMMATURE GRANULOCYTES 0.2 % (0-5); LYMPHOCYTES 37.8 % (15-50); MCH 29.4 pg (26.0-34.0); MCHC 32.4 g/dL (31.0-37.0); MCV 90.6 fL (80.0-100.0); MEAN PLATELET VOLUME 10.4 fL (7.4-10.4); MONOCYTES 5.2 % (2-11); NEUTROPHILS 52.9 % (40-80); PLATELET COUNT 208 10x3/uL (130-400); RBC 3.74 10x6/uL (4.00-5.40); RDW 13.1 % (11.5-14.5); WBC 6.1 10x3/uL (4.8-10.8)
[2017-10-02 10:18] LABS: ANION GAP 11.9 mmol/L (8-16); CALCIUM 9.1 mg/dL (8.5-10.1); CARBON DIOXIDE 29.7 mmol/L (21.0-32.0); CREATININE - SERUM 1.1 mg/dL (0.6-1.3); POTASSIUM - SERUM 3.6 mmol/L (3.5-5.1)
== END 2017-10-02 17:00 | disposition home or self-care (01) ==
LOC: D.CATH 08:45
PROVIDERS: Internal Medicine Interventional Cardiology
DX: I25.119 Atherosclerotic heart disease of native coronary artery with unspecified angina pectoris (principal); I10 Essential (primary) hypertension; E78.5 Hyperlipidemia, unspecified; Z95.5 Presence of coronary angioplasty implant and graft; Z01.812 Encounter for preprocedural laboratory examination

== ENCOUNTER 2017-10-31 18:47 | Emergency (ER) | payer MEDICARE, MEDICAID ==
[~2017-10-31] VITALS: Ht 162.6 cm; Wt 93.4 kg
[~2017-10-31 18:47] MED LIST changes: +GLUCOTROL 5 MG T5 MG PO; +TOPROL XL25 MG PO; +TRIAMTERENE-HCT1 TA1 PO
[2017-10-31 19:04] VITALS: Ht 162.6 cm; Wt 93.4 kg
[2017-10-31 19:38] LABS: BASOPHILS 0.1 % (0-2); EOSINOPHILS 1.3 % (0-7); HEMOGLOBIN 10.6 g/dL (12-16); IMMATURE GRANULOCYTES 0.3 % (0-5); LYMPHOCYTES 25.5 % (15-50); MCH 29.3 pg (26.0-34.0); MCHC 32.1 g/dL (31.0-37.0); MCV 91.2 fL (80.0-100.0); MONOCYTES 4.1 % (2-11); NEUTROPHILS 68.7 % (40-80); PLATELET COUNT 210 10x3/uL (130-400); RBC 3.62 10x6/uL (4.00-5.40); RDW 13.4 % (11.5-14.5); WBC 7.5 10x3/uL (4.8-10.8)
[2017-10-31 19:55] LABS: ALBUMIN 3.7 g/dL (3.4-5.0); ALKALINE PHOSPHATASE 84 U/L (46-116); ALT (SGPT) 18 U/L (10-68); CALC OSMOLALITY 279 mosm/kg (275-300); CALCIUM 8.6 mg/dL (8.5-10.1); CHLORIDE - SERUM 101 mmol/L (98-107); CREATININE - SERUM 1.2 mg/dL (0.6-1.3); GLUCOSE 122 mg/dL (74-106); POTASSIUM - SERUM 3.6 mmol/L (3.5-5.1); SODIUM 140 mmol/L (136-145); UREA NITROGEN 13 mg/dL (7-18); eGFR NON AFRICAN AMERICAN 47 mL/min (90-120)
[2017-10-31 20:05] LABS: CKMB 0.9 U/L (0.0-3.6); CREATINE KINASE 161 UL (21-215)
[2017-10-31 20:08] LABS: TROPONIN-I < 0.017 ng/mL (0.000-0.060)
[2017-10-31 20:45] LABS: APPEARANCE CLEAR (CLEAR); BILIRUBIN NEGATIVE (NEGATIVE); COLOR YELLOW (YELLOW); GLUCOSE NEGATIVE (NEGATIVE); KETONE NEGATIVE (NEGATIVE); NITRITE NEGATIVE (NEGATIVE); PROTEIN NEGATIVE (NEGATIVE); SPECIFIC GRAVITY 1.005 (1.005-1.020); UROBILINOGEN NORMAL (NORMAL)
[2017-10-31 22:48] VITALS: BP 131/81
== END 2017-10-31 22:28 | disposition home or self-care (01) ==
LOC: D.ER 18:47
PROVIDERS: Family Medicine
DX: R51 Headache (principal); R42 Dizziness and giddiness

== ENCOUNTER 2017-11-05 23:06 | Emergency (ER) | payer MEDICARE, MEDICAID ==
[~2017-11-05] VITALS: Ht 162.6 cm; Wt 93.0 kg
[2017-11-05 23:11] VITALS: Ht 162.6 cm; Wt 93.0 kg
[2017-11-05] MEDS ORDERED: ANUSOL-HC25 MG RC (23:33)
[2017-11-05 23:47] VITALS: BP 140/84
== END 2017-11-05 23:47 | disposition home or self-care (01) ==
LOC: D.ER 23:06
DX: K62.89 Other specified diseases of anus and rectum (principal); K59.00 Constipation, unspecified; E11.9 Type 2 diabetes mellitus without complications; I10 Essential (primary) hypertension; I25.10 Atherosclerotic heart disease of native coronary artery without angina pectoris

== ENCOUNTER 2018-01-22 12:16 | Emergency (ER) | payer MEDICARE, MEDICAID ==
[~2018-01-22] VITALS: Ht 162.6 cm; Wt 90.9 kg
[~2018-01-22 12:16] MED LIST changes: +ANUSOL-HC25 MG RC
[2018-01-22 12:27] VITALS: Ht 162.6 cm; Wt 90.9 kg
[2018-01-22 12:40] LABS: BASOPHILS 0.2 % (0-2); EOSINOPHILS 4.5 % (0-7); HEMOGLOBIN 9.8 g/dL (12-16); IMMATURE GRANULOCYTES 0.2 % (0-5); LYMPHOCYTES 33.8 % (15-50); MCH 28.6 pg (26.0-34.0); MCHC 31.6 g/dL (31.0-37.0); MCV 90.4 fL (80.0-100.0); MEAN PLATELET VOLUME 10.5 fL (7.4-10.4); MONOCYTES 4.1 % (2-11); NEUTROPHILS 57.2 % (40-80); PLATELET COUNT 208 10x3/uL (130-400); RBC 3.43 10x6/uL (4.00-5.40); RDW 13.6 % (11.5-14.5); WBC 5.4 10x3/uL (4.8-10.8)
[2018-01-22 12:53] LABS: ALBUMIN 3.6 g/dL (3.4-5.0); ANION GAP 13.8 mmol/L (8-16); BILIRUBIN - TOTAL 0.37 mg/dL (0.2-1.3); CARBON DIOXIDE 27.5 mmol/L (21.0-32.0); CREATININE - SERUM 1.1 mg/dL (0.6-1.3); POTASSIUM - SERUM 3.3 mmol/L (3.5-5.1); PROTEIN - SERUM 7.7 g/dL (6.4-8.2)
[2018-01-22 14:25] LABS: AMYLASE - SERUM 58 U/L (25-115); LIPASE 96 U/L (73-393)
[2018-01-22 14:56] LABS: APPEARANCE CLEAR (CLEAR); BILIRUBIN NEGATIVE (NEGATIVE); COLOR YELLOW (YELLOW); GLUCOSE NEGATIVE (NEGATIVE); KETONE NEGATIVE (NEGATIVE); NITRITE NEGATIVE (NEGATIVE); PROTEIN NEGATIVE (NEGATIVE); UROBILINOGEN NORMAL (NORMAL)
[2018-01-22] MEDS ORDERED: PROTONIX40 MG PO (16:19)
[2018-01-22] MEDS ORDERED: ZOFRAN4 MG PO (16:19)
[2018-01-22] MEDS ORDERED: CARAFATE1 G PO (16:19)
[2018-01-22 16:36] VITALS: BP 134/81
== END 2018-01-22 16:37 | disposition home or self-care (01) ==
LOC: D.ER 12:16
PROVIDERS: Family Medicine
DX: K29.70 Gastritis, unspecified, without bleeding (principal); E87.6 Hypokalemia; E11.9 Type 2 diabetes mellitus without complications; I10 Essential (primary) hypertension

== ENCOUNTER 2018-02-18 08:24 | Emergency (ER) | payer MEDICARE, MEDICAID ==
[~2018-02-18] VITALS: Ht 162.6 cm; Wt 93.2 kg
[~2018-02-18 08:24] MED LIST changes: +CARAFATE1 G PO; +PROTONIX40 MG PO; +ZOFRAN4 MG PO
[2018-02-18 08:28] VITALS: Ht 162.6 cm; Wt 93.2 kg
[2018-02-18 08:52] LABS: APPEARANCE HAZY (CLEAR); BASOPHILS 0.2 % (0-2); BILIRUBIN NEGATIVE (NEGATIVE); COLOR DK YELLOW (YELLOW); EOSINOPHILS 5.2 % (0-7); GLUCOSE NEGATIVE (NEGATIVE); HEMATOCRIT 34.7 % (36.0-48.0); HEMOGLOBIN 11.1 g/dL (12-16); IMMATURE GRANULOCYTES 0.2 % (0-5); KETONE NEGATIVE (NEGATIVE); LYMPHOCYTES 41.4 % (15-50); MCH 28.8 pg (26.0-34.0); MCV 90.1 fL (80.0-100.0); MEAN PLATELET VOLUME 10.4 fL (7.4-10.4); MONOCYTES 8.9 % (2-11); NEUTROPHILS 44.1 % (40-80); NITRITE NEGATIVE (NEGATIVE); PLATELET COUNT 233 10x3/uL (130-400); PROTEIN NEGATIVE (NEGATIVE); RBC 3.85 10x6/uL (4.00-5.40); RDW 13.7 % (11.5-14.5); UROBILINOGEN NORMAL (NORMAL); WBC 5.5 10x3/uL (4.8-10.8)
[2018-02-18 09:04] LABS: ALBUMIN 3.7 g/dL (3.4-5.0); ANION GAP 12.8 mmol/L (8-16); BILIRUBIN - TOTAL 0.51 mg/dL (0.2-1.3); CARBON DIOXIDE 26.5 mmol/L (21.0-32.0); CREATININE - SERUM 1.3 mg/dL (0.6-1.3); POTASSIUM - SERUM 3.3 mmol/L (3.5-5.1); PROTEIN - SERUM 8.1 g/dL (6.4-8.2)
[2018-02-18] MEDS ORDERED: LOMOTIL 2.5-0.1 EAC1 PO (10:37)
[2018-02-18 10:52] VITALS: BP 128/70
== END 2018-02-18 10:53 | disposition home or self-care (01) ==
LOC: D.ER 08:24
PROVIDERS: Family Medicine
DX: A08.4 Viral intestinal infection, unspecified (principal); R10.30 Lower abdominal pain, unspecified; E87.6 Hypokalemia; E11.9 Type 2 diabetes mellitus without complications; I10 Essential (primary) hypertension

== ENCOUNTER 2018-03-17 11:42 | Emergency (ER) | payer MEDICARE, MEDICAID ==
[~2018-03-17] VITALS: Ht 162.6 cm; Wt 94.1 kg
[~2018-03-17 11:42] MED LIST changes: +LOMOTIL 2.5-0.1 EAC1 PO
[2018-03-17 12:00] VITALS: Ht 162.6 cm; Wt 94.1 kg
[2018-03-17 12:40] LABS: BASOPHILS 0.1 % (0-2); EOSINOPHILS 1.8 % (0-7); HEMATOCRIT 32.2 % (36.0-48.0); HEMOGLOBIN 10.3 g/dL (12-16); IMMATURE GRANULOCYTES 0.2 % (0-5); LYMPHOCYTES 32.1 % (15-50); MCH 28.9 pg (26.0-34.0); MCV 90.4 fL (80.0-100.0); MEAN PLATELET VOLUME 10.5 fL (7.4-10.4); MONOCYTES 5.9 % (2-11); NEUTROPHILS 59.9 % (40-80); PLATELET COUNT 225 10x3/uL (130-400); RBC 3.56 10x6/uL (4.00-5.40); RDW 13.4 % (11.5-14.5); WBC 8.1 10x3/uL (4.8-10.8)
[2018-03-17 12:50] LABS: APTT 30.8 SECONDS (22.8-39.4); INR 1.15 (0.85-1.17); PROTIME 14.2 SECONDS (11.6-15.0)
[2018-03-17 12:58] LABS: ALBUMIN 3.7 g/dL (3.4-5.0); ALKALINE PHOSPHATASE 77 U/L (46-116); ALT (SGPT) 15 U/L (10-68); BILIRUBIN - TOTAL 0.23 mg/dL (0.2-1.3); CALC OSMOLALITY 281 mosm/kg (275-300); CALCIUM 9.2 mg/dL (8.5-10.1); CARBON DIOXIDE 27.3 mmol/L (21.0-32.0); CHLORIDE - SERUM 101 mmol/L (98-107); CREATININE - SERUM 1.1 mg/dL (0.6-1.3); GLUCOSE 151 mg/dL (74-106); POTASSIUM - SERUM 3.3 mmol/L (3.5-5.1); PROTEIN - SERUM 8.2 g/dL (6.4-8.2); SODIUM 139 mmol/L (136-145); UREA NITROGEN 15 mg/dL (7-18); eGFR NON AFRICAN AMERICAN 52 mL/min (90-120)
[2018-03-17 13:11] LABS: CKMB 0.9 U/L (0.0-3.6); CREATINE KINASE 197 UL (21-215); MAGNESIUM - SERUM 1.7 mg/dL (1.8-2.4); TROPONIN-I < 0.017 ng/mL (0.000-0.060)
[2018-03-17] MEDS ORDERED: AUGMENTIN 875-11 TAB PO (14:49)
[2018-03-17] MEDS ORDERED: PHENERGAN DM SYR5 ML PO (14:49)
[2018-03-17 15:19] VITALS: BP 126/80
== END 2018-03-17 15:20 | disposition home or self-care (01) ==
LOC: D.ER 11:42
PROVIDERS: Family Medicine
DX: J06.9 Acute upper respiratory infection, unspecified (principal); R05 Cough; E11.9 Type 2 diabetes mellitus without complications; I10 Essential (primary) hypertension; I25.10 Atherosclerotic heart disease of native coronary artery without angina pectoris

== ENCOUNTER 2018-04-19 23:53 | Emergency (ER) | payer MEDICARE, MEDICAID ==
[~2018-04-19] VITALS: Ht 162.6 cm; Wt 94.1 kg
[~2018-04-19 23:53] MED LIST changes: +AUGMENTIN 875-11 TAB PO; +PHENERGAN DM SYR5 ML PO
[2018-04-20 00:02] VITALS: BP 146/82; Ht 162.6 cm; Wt 94.1 kg
[2018-04-20 00:50] LABS: BASOPHILS 0.2 % (0-2); EOSINOPHILS 0.8 % (0-7); HEMATOCRIT 31.5 % (36.0-48.0); HEMOGLOBIN 10.1 g/dL (12-16); IMMATURE GRANULOCYTES 0.1 % (0-5); LYMPHOCYTES 31.7 % (15-50); MCHC 32.1 g/dL (31.0-37.0); MCV 90.5 fL (80.0-100.0); MEAN PLATELET VOLUME 10.3 fL (7.4-10.4); MONOCYTES 5.4 % (2-11); NEUTROPHILS 61.8 % (40-80); PLATELET COUNT 218 10x3/uL (130-400); RBC 3.48 10x6/uL (4.00-5.40); RDW 13.8 % (11.5-14.5); WBC 9.2 10x3/uL (4.8-10.8)
[2018-04-20 01:24] LABS: ALBUMIN 3.7 g/dL (3.4-5.0); ANION GAP 13.8 mmol/L (8-16); BILIRUBIN - TOTAL 0.22 mg/dL (0.2-1.3); CALCIUM 8.9 mg/dL (8.5-10.1); CARBON DIOXIDE 27.2 mmol/L (21.0-32.0); CREATININE - SERUM 1.3 mg/dL (0.6-1.3); MAGNESIUM - SERUM 1.9 mg/dL (1.8-2.4); PROTEIN - SERUM 7.4 g/dL (6.4-8.2)
== END 2018-04-20 04:01 | disposition home or self-care (01) ==
LOC: D.ER 23:53
PROVIDERS: Family Medicine
DX: T50.995A Adverse effect of other drugs, medicaments and biological substances, initial encounter (principal); Y92.019 Unspecified place in single-family (private) house as the place of occurrence of the external cause; R25.2 Cramp and spasm

== ENCOUNTER 2018-04-24 02:24 | Emergency (ER) | payer MEDICARE, MEDICAID ==
[~2018-04-24] VITALS: Ht 162.6 cm; Wt 93.2 kg
[2018-04-24 02:32] VITALS: Ht 162.6 cm; Wt 93.2 kg
[2018-04-24 02:50] LABS: INR 1.09 (0.85-1.17); PROTIME 13.6 SECONDS (11.6-15.0)
[2018-04-24 02:52] LABS: BASOPHILS 0.2 % (0-2); EOSINOPHILS 1.8 % (0-7); HEMATOCRIT 31.6 % (36.0-48.0); HEMOGLOBIN 10.1 g/dL (12-16); IMMATURE GRANULOCYTES 0.2 % (0-5); LYMPHOCYTES 36.4 % (15-50); MCH 28.9 pg (26.0-34.0); MCV 90.5 fL (80.0-100.0); MEAN PLATELET VOLUME 10.6 fL (7.4-10.4); NEUTROPHILS 54.4 % (40-80); PLATELET COUNT 221 10x3/uL (130-400); RBC 3.49 10x6/uL (4.00-5.40); RDW 13.6 % (11.5-14.5); WBC 8.4 10x3/uL (4.8-10.8)
[2018-04-24 02:55] LABS: ALBUMIN 3.6 g/dL (3.4-5.0); ALKALINE PHOSPHATASE 108 U/L (46-116); ALT (SGPT) 19 U/L (10-68); BILIRUBIN - TOTAL 0.21 mg/dL (0.2-1.3); CALC OSMOLALITY 285 mosm/kg (275-300); CALCIUM 8.4 mg/dL (8.5-10.1); CARBON DIOXIDE 24.1 mmol/L (21.0-32.0); CHLORIDE - SERUM 103 mmol/L (98-107); CREATININE - SERUM 1.3 mg/dL (0.6-1.3); POTASSIUM - SERUM 3.8 mmol/L (3.5-5.1); PROTEIN - SERUM 7.5 g/dL (6.4-8.2); SODIUM 139 mmol/L (136-145); UREA NITROGEN 23 mg/dL (7-18); eGFR NON AFRICAN AMERICAN 43 mL/min (90-120)
[2018-04-24 03:03] LABS: CKMB 1.3 U/L (0.0-3.6); CREATINE KINASE 199 UL (21-215); GLUCOSE 171 mg/dL (74-106)
[2018-04-24 03:04] LABS: TROPONIN-I < 0.017 ng/mL (0.000-0.060)
[2018-04-24 04:21] VITALS: BP 130/52
== END 2018-04-24 04:22 | disposition home or self-care (01) ==
LOC: D.ER 02:24
PROVIDERS: Family Medicine
DX: K21.9 Gastro-esophageal reflux disease without esophagitis (principal); R07.89 Other chest pain; E11.9 Type 2 diabetes mellitus without complications

== ENCOUNTER 2018-05-29 22:42 | Emergency (ER) | payer MEDICARE, MEDICAID ==
[~2018-05-29] VITALS: Ht 162.6 cm; Wt 89.1 kg
[2018-05-29 22:57] VITALS: Ht 162.6 cm; Wt 89.1 kg
[2018-05-30 00:17] VITALS: BP 135/74
== END 2018-05-30 00:18 | disposition home or self-care (01) ==
LOC: D.ER 22:42
DX: B34.9 Viral infection, unspecified (principal); E11.9 Type 2 diabetes mellitus without complications; I10 Essential (primary) hypertension; I25.10 Atherosclerotic heart disease of native coronary artery without angina pectoris; R05 Cough; R09.89 Other specified symptoms and signs involving the circulatory and respiratory systems

== ENCOUNTER 2018-07-02 13:49 | Emergency (ER) | payer MEDICARE, MEDICAID ==
[~2018-07-02] VITALS: Ht 162.6 cm; Wt 91.8 kg
[2018-07-02 13:51] VITALS: Ht 162.6 cm; Wt 91.8 kg
[2018-07-02 14:15] LABS: BASOPHILS 0.5 % (0-2); HEMATOCRIT 32.9 % (36.0-48.0); HEMOGLOBIN 10.6 g/dL (12-16); IMMATURE GRANULOCYTES 0.2 % (0-5); LYMPHOCYTES 35.5 % (15-50); MCH 29.3 pg (26.0-34.0); MCHC 32.2 g/dL (31.0-37.0); MCV 90.9 fL (80.0-100.0); MEAN PLATELET VOLUME 10.8 fL (7.4-10.4); MONOCYTES 5.1 % (2-11); NEUTROPHILS 54.7 % (40-80); PLATELET COUNT 213 10x3/uL (130-400); RBC 3.62 10x6/uL (4.00-5.40); RDW 13.2 % (11.5-14.5); WBC 6.5 10x3/uL (4.8-10.8)
[2018-07-02 14:23] LABS: APTT 30.1 SECONDS (22.8-39.4)
[2018-07-02 14:24] LABS: INR 1.08 (0.85-1.17); PROTIME 13.5 SECONDS (11.6-15.0)
[2018-07-02 14:35] LABS: ALBUMIN 3.6 g/dL (3.4-5.0); ALKALINE PHOSPHATASE 87 U/L (46-116); ALT (SGPT) 18 U/L (10-68); CALC OSMOLALITY 282 mosm/kg (275-300); CARBON DIOXIDE 28.5 mmol/L (21.0-32.0); CHLORIDE - SERUM 102 mmol/L (98-107); GLUCOSE 180 mg/dL (74-106); POTASSIUM - SERUM 3.5 mmol/L (3.5-5.1); PROTEIN - SERUM 7.8 g/dL (6.4-8.2); SODIUM 139 mmol/L (136-145); UREA NITROGEN 13 mg/dL (7-18); eGFR NON AFRICAN AMERICAN 58 mL/min (90-120)
[2018-07-02 14:46] LABS: CKMB 0.8 U/L (0.0-3.6); CREATINE KINASE 174 UL (21-215); MAGNESIUM - SERUM 1.6 mg/dL (1.8-2.4)
[2018-07-02 14:49] LABS: TROPONIN-I < 0.017 ng/mL (0.000-0.060)
[2018-07-02] MEDS ORDERED: LEVSIN/ANASP0.125 MG PO (14:54)
[2018-07-02] MEDS ORDERED: MYLANTA II SUSP30 ML PO (15:13)
[2018-07-02 16:23] VITALS: BP 149/98
== END 2018-07-02 16:24 | disposition home or self-care (01) ==
LOC: D.ER 13:49
PROVIDERS: Emergency Medicine
DX: K21.9 Gastro-esophageal reflux disease without esophagitis (principal)

== ENCOUNTER 2018-09-19 19:57 | Emergency (ER) | payer MEDICARE, MEDICAID ==
[~2018-09-19] VITALS: Ht 162.6 cm; Wt 76.4 kg
[~2018-09-19 19:57] MED LIST changes: +LEVSIN/ANASP0.125 MG PO; +MYLANTA II SUSP30 ML PO
[2018-09-19 20:07] VITALS: Ht 162.6 cm; Wt 76.4 kg
[2018-09-19 20:46] LABS: BASOPHILS 0.2 % (0-2); EOSINOPHILS 3.8 % (0-7); HEMOGLOBIN 10.3 g/dL (12-16); LYMPHOCYTES 31.5 % (15-50); MCH 29.2 pg (26.0-34.0); MCHC 33.2 g/dL (31.0-37.0); MCV 87.8 fL (80.0-100.0); MONOCYTES 5.9 % (2-11); NEUTROPHILS 58.6 % (40-80); PLATELET COUNT 202 10x3/uL (130-400); RBC 3.53 10x6/uL (4.00-5.40); RDW 13.4 % (11.5-14.5); WBC 6.3 10x3/uL (4.8-10.8)
[2018-09-19 21:03] LABS: ALBUMIN 3.7 g/dL (3.4-5.0); ANION GAP 9.9 mmol/L (8-16); BILIRUBIN - TOTAL 0.31 mg/dL (0.2-1.3); CALCIUM 8.9 mg/dL (8.5-10.1); CARBON DIOXIDE 31.1 mmol/L (21.0-32.0); PROTEIN - SERUM 7.8 g/dL (6.4-8.2)
== END 2018-09-19 20:44 | disposition home or self-care (01) ==
LOC: D.ER 19:57
PROVIDERS: Family Medicine
DX: R51 Headache (principal); R10.9 Unspecified abdominal pain; I10 Essential (primary) hypertension

== ENCOUNTER 2018-09-19 20:51 | Emergency (ER) | payer MEDICARE, MEDICAID ==
[~2018-09-19] VITALS: Ht 162.6 cm; Wt 81.8 kg
[2018-09-19 20:56] VITALS: Ht 162.6 cm; Wt 81.8 kg
[2018-09-19 21:20] LABS: AMYLASE - SERUM 65 U/L (25-115); LIPASE 99 U/L (73-393)
[2018-09-19 21:22] LABS: TROPONIN-I < 0.017 ng/mL (0.000-0.060)
[2018-09-19 22:07] LABS: APPEARANCE CLEAR (CLEAR); BILIRUBIN NEGATIVE (NEGATIVE); COLOR YELLOW (YELLOW); GLUCOSE NEGATIVE (NEGATIVE); KETONE NEGATIVE (NEGATIVE); NITRITE NEGATIVE (NEGATIVE); PROTEIN NEGATIVE (NEGATIVE); UROBILINOGEN NORMAL (NORMAL)
[2018-09-19 23:44] VITALS: BP 140/65
== END 2018-09-19 23:46 | disposition home or self-care (01) ==
LOC: D.ER 20:51
PROVIDERS: Family Medicine
DX: R51 Headache (principal); R10.9 Unspecified abdominal pain; I10 Essential (primary) hypertension

== ENCOUNTER 2018-12-29 12:59 | Observation (INO) | payer MEDICARE, MEDICAID ==
[~2018-12-29] VITALS: Ht 162.6 cm; Wt 86.4 kg
[2018-12-29 13:27] LABS: APPEARANCE CLEAR (CLEAR); BILIRUBIN NEGATIVE (NEGATIVE); COLOR YELLOW (YELLOW); GLUCOSE NEGATIVE (NEGATIVE); KETONE NEGATIVE (NEGATIVE); NITRITE NEGATIVE (NEGATIVE); PROTEIN NEGATIVE (NEGATIVE); UROBILINOGEN NORMAL (NORMAL)
[2018-12-29 13:31] LABS: BASOPHILS 0.3 % (0-2); EOSINOPHILS 2.6 % (0-7); HEMOGLOBIN 10.8 g/dL (12-16); IMMATURE GRANULOCYTES 0.1 % (0-5); LYMPHOCYTES 33.1 % (15-50); MCH 29.5 pg (26.0-34.0); MCHC 31.8 g/dL (31.0-37.0); MCV 92.9 fL (80.0-100.0); MEAN PLATELET VOLUME 10.2 fL (7.4-10.4); MONOCYTES 5.7 % (2-11); NEUTROPHILS 58.2 % (40-80); RBC 3.66 10x6/uL (4.00-5.40); RDW 13.8 % (11.5-14.5); WBC 6.9 10x3/uL (4.8-10.8)
[2018-12-29 13:36] LABS: PLATELET COUNT 243 10x3/uL (130-400)
[2018-12-29 13:40] LABS: INR 1.08 (0.85-1.17); PROTIME 13.5 SECONDS (11.6-15.0)
[2018-12-29 13:41] LABS: CALC OSMOLALITY 282 mosm/kg (275-300); CARBON DIOXIDE 29.8 mmol/L (21.0-32.0); CHLORIDE - SERUM 104 mmol/L (98-107); CREATININE - SERUM 1.1 mg/dL (0.6-1.3); GLUCOSE 102 mg/dL (74-106); POTASSIUM - SERUM 3.5 mmol/L (3.5-5.1); SODIUM 142 mmol/L (136-145); UREA NITROGEN 13 mg/dL (7-18); eGFR NON AFRICAN AMERICAN 52 mL/min (90-120)
[2018-12-29 13:55] LABS: ALBUMIN 3.8 g/dL (3.4-5.0); ALKALINE PHOSPHATASE 90 U/L (46-116); ALT (SGPT) 23 U/L (10-68); AMYLASE - SERUM 62 U/L (25-115); BILIRUBIN - TOTAL 0.42 mg/dL (0.2-1.3); CKMB 0.9 U/L (0.0-3.6); CREATINE KINASE 205 UL (21-215); LIPASE 88 U/L (73-393); MAGNESIUM - SERUM 1.6 mg/dL (1.8-2.4); PROTEIN - SERUM 8.3 g/dL (6.4-8.2)
[2018-12-29 13:56] LABS: TROPONIN-I < 0.017 ng/mL (0.000-0.060)
[2018-12-29 15:57] VITALS: BP 136/73
[2018-12-29 16:53] VITALS: BP 122/71; BMI 32.7
--- NOTE | 2018-12-29 19:17 | NUR ---
RECIEVED BEDSIDE SHIFT REPOT. ALERT AND ORIENTED X4. UP AD SILVINO TO B/R. IV TO RIGHT AC SL.. TELEMETRY IN PLACE. DENIES ANY NEEDS AT THIS TIME.
[2018-12-29 20:33] VITALS: BP 111/60
[2018-12-30 00:35] VITALS: BP 134/62
[2018-12-30 03:09] LABS: BASOPHILS 0.3 % (0-2); HEMATOCRIT 31.9 % (36.0-48.0); HEMOGLOBIN 10.1 g/dL (12-16); IMMATURE GRANULOCYTES 0.2 % (0-5); LYMPHOCYTES 36.8 % (15-50); MCH 29.3 pg (26.0-34.0); MCHC 31.7 g/dL (31.0-37.0); MCV 92.5 fL (80.0-100.0); MEAN PLATELET VOLUME 10.3 fL (7.4-10.4); MONOCYTES 6.9 % (2-11); NEUTROPHILS 51.8 % (40-80); PLATELET COUNT 232 10x3/uL (130-400); RBC 3.45 10x6/uL (4.00-5.40); RDW 13.9 % (11.5-14.5); WBC 5.8 10x3/uL (4.8-10.8)
[2018-12-30 03:27] LABS: CALC OSMOLALITY 282 mosm/kg (275-300); CALCIUM 8.6 mg/dL (8.5-10.1); CARBON DIOXIDE 28.6 mmol/L (21.0-32.0); CHLORIDE - SERUM 106 mmol/L (98-107); GLUCOSE 107 mg/dL (74-106); POTASSIUM - SERUM 3.6 mmol/L (3.5-5.1); SODIUM 142 mmol/L (136-145); UREA NITROGEN 12 mg/dL (7-18); eGFR NON AFRICAN AMERICAN 58 mL/min (90-120)
[2018-12-30 03:34] LABS: TROPONIN-I < 0.017 ng/mL (0.000-0.060)
[2018-12-30 04:41] VITALS: BP 109/59
--- NOTE | 2018-12-30 07:15 | NUR ---
AM ROUNDS- PT RESTING COMFORTABLY WITH EYES CLOSED, NAD NOTED, CALL LIGHT IN REACH, BEDSIDE RAILS X2, NAD NOTED, WILL CONTINUE PLAN OF CARE.
[2018-12-30 08:03] VITALS: BP 105/61
--- NOTE | 2018-12-30 11:42 | NUR ---
GAVE TYLENOL FOR PAIN LEVEL OF 5/10. PT ALSO ASKING ABOUT HOME MEDICATIONS, WILL NOTIFY JULIO C HINSON. PT DENIES ANY OTHER NEEDS AT THIS TIME. CALL LIGHT IN REACH, NAD NOTED, WILL CONTINUE TO MONITOR.
[2018-12-30 12:02] VITALS: BP 111/69
[2018-12-30 13:45] VITALS: Ht 162.6 cm; Wt 86.4 kg
[2018-12-30 14:03] LABS: % SATURATION 12 % (15-55); IRON 42 ug/dl (35-150); TOTAL IRON BIND CAPACITY 337 ug/dl (260-445); UNSAT IRON BIND CAPACITY 295 ug/dl (150-375)
--- NOTE | 2018-12-30 15:26 | NUR ---
PROVIDED VERBAL AND WRITTEN DISCHARGE TEACHING TO PT, WHO VERBALIZED UNDERSTANDING REGARDING TEACHING. D/C RT AC IV WITH CATHETER TIP INTACT. PT WILL NOTIFY WHEN READY FOR WHEELCHAIR.
--- NOTE | 2018-12-30 15:48 | NUR ---
PT LEFT UNIT VIA WHEELCHAIR, WITH ALL BELONGINGS, NAD NOTED.
--- NOTE | 2019-01-01 10:01 | MORECARE ---
CASE MANAGEMENT DISCHARGE SUMMARY PATIENT: MORRO KOLB UNIT: [id number] ADM DATE: 12/29/18 AGE: 73 : [birth year] SEX: F ROOM/BED: D.2126 AUTHOR: YOBANY LEACH PHYSICIAN: REFERRING PHYSICIAN: GLO POTTER MD DATE OF SERVICE: 01/01/19 Discharge Plan Patient Name: MORRO KOLB [facility] [facility] 1945 Planned Disposition: Home Anticipated Discharge Date: 12/30/18 Discharge Date: 12/30/2018 Expected LOS: 1 Initial Reviewer: [email or web address] Initial Review Date: 01/01/2019 Generated: 01/01/19 11:01 am Coverage Notice Reviewer: [email or web address] Charan Sánchez Notice Issued Date-Time: 12/29/2018 17:30 Notice Type: Medicare Outpatient Observation Notice Notice Delivered To: Patient Relationship to Patient: Controlled Area Checker Name: Delivery Method: HAND - Hand Delivered Diana Days: Prior Verbal Notification: Recipient Understood Notice: Recipient Signature: Med Rec Note Co-signed by Attending: Coverage Notice Comment: Patient Name: MORRO KOLB Page [phone] at 1001 All edits/amendments must be made on the electronic document DICTATION DATE: 01/01/19 1001 POLYGRAPH TECHNICIAN: WILLIE 01/01/19 1001 RPT#: [id number] DC DATE:12/30/18 STATUS: DIS IN [facility] [address] [place] [address] END OF REPORT
== END 2018-12-30 15:49 | disposition home or self-care (01) ==
LOC: D.ER 12:59 → D.M2 16:01 → OBSVTIME 16:09 → D.M2 12-30 15:49
PROVIDERS: Family Medicine; ADMIT Internal Medicine Nephrology; ATTEND Internal Medicine Nephrology
DX: R07.9 Chest pain, unspecified (principal); D64.9 Anemia, unspecified; E83.42 Hypomagnesemia; I10 Essential (primary) hypertension; E78.5 Hyperlipidemia, unspecified; E11.9 Type 2 diabetes mellitus without complications; K21.9 Gastro-esophageal reflux disease without esophagitis; I25.10 Atherosclerotic heart disease of native coronary artery without angina pectoris; Z95.5 Presence of coronary angioplasty implant and graft

== ENCOUNTER 2019-03-08 22:36 | Emergency (ER) | payer MEDICARE, MEDICAID ==
[~2019-03-08] VITALS: Ht 162.6 cm; Wt 100.0 kg
[2019-03-08 22:48] VITALS: Ht 162.6 cm; Wt 100.0 kg
[2019-03-08 23:07] LABS: APPEARANCE CLEAR (CLEAR); BILIRUBIN NEGATIVE (NEGATIVE); COLOR YELLOW (YELLOW); GLUCOSE NEGATIVE (NEGATIVE); KETONE NEGATIVE (NEGATIVE); NITRITE NEGATIVE (NEGATIVE); PROTEIN NEGATIVE (NEGATIVE); UROBILINOGEN NORMAL (NORMAL)
[2019-03-08 23:08] LABS: BASOPHILS 0.3 % (0-2); EOSINOPHILS 5.2 % (0-7); HEMOGLOBIN 10.1 g/dL (12-16); IMMATURE GRANULOCYTES 0.1 % (0-5); LYMPHOCYTES 33.7 % (15-50); MCH 29.2 pg (26.0-34.0); MCHC 31.6 g/dL (31.0-37.0); MCV 92.5 fL (80.0-100.0); MEAN PLATELET VOLUME 10.2 fL (7.4-10.4); MONOCYTES 5.3 % (2-11); NEUTROPHILS 55.4 % (40-80); PLATELET COUNT 241 10x3/uL (130-400); RBC 3.46 10x6/uL (4.00-5.40); RDW 13.5 % (11.5-14.5)
[2019-03-08 23:12] LABS: ANION GAP 12.4 mmol/L (8-16); CALCIUM 8.7 mg/dL (8.5-10.1); CARBON DIOXIDE 30.1 mmol/L (21.0-32.0); POTASSIUM - SERUM 3.5 mmol/L (3.5-5.1)
[2019-03-08 23:18] LABS: ALBUMIN 3.5 g/dL (3.4-5.0); BILIRUBIN - TOTAL 0.18 mg/dL (0.2-1.3); PROTEIN - SERUM 7.6 g/dL (6.4-8.2)
[2019-03-09 01:08] LABS: AMYLASE - SERUM 75 U/L (25-115); LIPASE 109 U/L (73-393)
[2019-03-09] MEDS ORDERED: NEXIUM20 MG PO (01:26)
[2019-03-09 01:36] VITALS: BP 144/86
== END 2019-03-09 01:36 | disposition home or self-care (01) ==
LOC: D.ER 22:36
PROVIDERS: Emergency Medicine
DX: R10.12 Left upper quadrant pain (principal); D64.9 Anemia, unspecified; E11.9 Type 2 diabetes mellitus without complications; I10 Essential (primary) hypertension; I25.2 Old myocardial infarction; Z79.84 Long term (current) use of oral hypoglycemic drugs

== ENCOUNTER 2019-04-14 21:35 | Emergency (ER) | payer MEDICARE, MEDICAID ==
[~2019-04-14] VITALS: Ht 162.6 cm; Wt 90.7 kg
[2019-04-14 21:47] VITALS: Ht 162.6 cm; Wt 90.7 kg
[2019-04-14 22:25] LABS: BASOPHILS 0.5 % (0-2); EOSINOPHILS 4.6 % (0-7); HEMATOCRIT 33.2 % (36.0-48.0); HEMOGLOBIN 10.5 g/dL (12-16); IMMATURE GRANULOCYTES 0.1 % (0-5); LYMPHOCYTES 39.5 % (15-50); MCH 28.9 pg (26.0-34.0); MCHC 31.6 g/dL (31.0-37.0); MCV 91.5 fL (80.0-100.0); MEAN PLATELET VOLUME 10.7 fL (7.4-10.4); MONOCYTES 6.5 % (2-11); NEUTROPHILS 48.8 % (40-80); PLATELET COUNT 232 10x3/uL (130-400); RBC 3.63 10x6/uL (4.00-5.40); RDW 13.7 % (11.5-14.5); WBC 7.7 10x3/uL (4.8-10.8)
[2019-04-14 22:35] LABS: CALC OSMOLALITY 280 mosm/kg (275-300); CALCIUM 9.1 mg/dL (8.5-10.1); CARBON DIOXIDE 31.1 mmol/L (21.0-32.0); CHLORIDE - SERUM 103 mmol/L (98-107); CREATININE - SERUM 1.2 mg/dL (0.6-1.3); GLUCOSE 128 mg/dL (74-106); POTASSIUM - SERUM 3.5 mmol/L (3.5-5.1); SODIUM 139 mmol/L (136-145); UREA NITROGEN 15 mg/dL (7-18); eGFR NON AFRICAN AMERICAN 47 mL/min (90-120)
[2019-04-14 22:39] LABS: APTT 29.3 SECONDS (22.8-39.4); INR 1.04 (0.85-1.17); PROTIME 13.5 SECONDS (11.6-15.0)
[2019-04-14 22:40] LABS: D-DIMER-QUANTITATIVE 0.74 ug/mLFEU (0.20-0.54)
[2019-04-14 22:48] LABS: BILIRUBIN NEGATIVE (NEGATIVE); GLUCOSE NEGATIVE (NEGATIVE); KETONE NEGATIVE (NEGATIVE); NITRITE NEGATIVE (NEGATIVE); SPECIFIC GRAVITY 1.005 (1.005-1.020); UROBILINOGEN NORMAL (NORMAL)
[2019-04-14 23:24] LABS: ALBUMIN 3.5 g/dL (3.4-5.0); ALKALINE PHOSPHATASE 83 U/L (30-120); ALT (SGPT) 24 U/L (10-68); AMYLASE - SERUM 84 U/L (25-115); BILIRUBIN - TOTAL 0.23 mg/dL (0.2-1.3); CKMB 0.8 U/L (0.0-3.6); CREATINE KINASE 139 UL (21-215); LIPASE 79 U/L (73-393); MAGNESIUM - SERUM 1.8 mg/dL (1.8-2.4); PRO BNP 14 pg/mL (0-125); PROTEIN - SERUM 7.9 g/dL (6.4-8.2); TROPONIN-I < 0.017 ng/mL (0.000-0.060)
[2019-04-15 01:56] VITALS: BP 145/81
== END 2019-04-15 01:57 | disposition home or self-care (01) ==
LOC: D.ER 21:35
PROVIDERS: Family Medicine
DX: J20.9 Acute bronchitis, unspecified (principal); R09.1 Pleurisy; E11.9 Type 2 diabetes mellitus without complications; I10 Essential (primary) hypertension; I25.2 Old myocardial infarction; K21.9 Gastro-esophageal reflux disease without esophagitis; Z79.84 Long term (current) use of oral hypoglycemic drugs

== ENCOUNTER 2019-07-04 18:29 | Emergency (ER) | payer MEDICARE, MEDICAID ==
[~2019-07-04] VITALS: Ht 162.6 cm; Wt 95.5 kg
[~2019-07-04 18:29] MED LIST changes: +NEXIUM20 MG PO; +OMNICEF300 MG PO
[2019-07-04 18:42] VITALS: Ht 162.6 cm; Wt 95.5 kg
[2019-07-04 19:12] LABS: BASOPHILS 0.3 % (0-2); EOSINOPHILS 4.5 % (0-7); HEMATOCRIT 33.7 % (36.0-48.0); HEMOGLOBIN 10.7 g/dL (12-16); LYMPHOCYTES 40.3 % (15-50); MCH 28.9 pg (26.0-34.0); MCHC 31.8 g/dL (31.0-37.0); MCV 91.1 fL (80.0-100.0); MEAN PLATELET VOLUME 10.5 fL (7.4-10.4); MONOCYTES 6.9 % (2-11); PLATELET COUNT 219 10x3/uL (130-400); RDW 13.5 % (11.5-14.5); WBC 5.8 10x3/uL (4.8-10.8)
[2019-07-04 19:18] LABS: CALC OSMOLALITY 274 mosm/kg (275-300); CHLORIDE - SERUM 101 mmol/L (98-107); CREATININE - SERUM 1.3 mg/dL (0.6-1.3); GLUCOSE 118 mg/dL (74-106); POTASSIUM - SERUM 3.6 mmol/L (3.5-5.1); SODIUM 137 mmol/L (136-145); UREA NITROGEN 13 mg/dL (7-18); eGFR NON AFRICAN AMERICAN 43 mL/min (90-120)
[2019-07-04 19:32] LABS: ALBUMIN 3.9 g/dL (3.4-5.0); ALKALINE PHOSPHATASE 82 U/L (30-120); ALT (SGPT) 30 U/L (10-68); BILIRUBIN - TOTAL 0.37 mg/dL (0.2-1.3); C-REACTIVE PROTEIN 1.2 mg/dL (0.0-0.9); PROTEIN - SERUM 8.7 g/dL (6.4-8.2); THYROID STIMULATING HORMONE 1.14 uIU/mL (0.36-3.74); TROPONIN-I < 0.017 ng/mL (0.000-0.060)
[2019-07-04 19:59] VITALS: BP 165/84
== END 2019-07-04 20:00 | disposition home or self-care (01) ==
LOC: D.ER 18:29
PROVIDERS: Family Medicine
DX: I10 Essential (primary) hypertension (principal); D64.9 Anemia, unspecified; R51 Headache; I25.2 Old myocardial infarction; E11.9 Type 2 diabetes mellitus without complications; K21.9 Gastro-esophageal reflux disease without esophagitis; Z79.84 Long term (current) use of oral hypoglycemic drugs

== ENCOUNTER → 2019-10-11 07:39 | Outpatient (CLI) | payer MEDICARE, MEDICAID ==
[2019-07-04 18:42] VITALS: BMI 36.1
== END | disposition home or self-care (01) ==
LOC: D.NM 07:39
PROVIDERS: ATTEND Internal Medicine Gastroenterology
DX: R13.10 Dysphagia, unspecified (principal)

== ENCOUNTER 2020-05-01 09:52 | Emergency (ER) | payer OTHER, MEDICAID ==
[~2020-05-01] VITALS: Ht 162.6 cm; Wt 81.8 kg
[2020-05-01 09:57] VITALS: Ht 162.6 cm; Wt 81.8 kg
[2020-05-01] MEDS ORDERED: DICLOFENAC SODI50 MG PO (11:24)
[2020-05-01 11:33] VITALS: BP 158/90
== END 2020-05-01 11:45 | disposition home or self-care (01) ==
LOC: D.ER 09:52
DX: S43.421A Sprain of right rotator cuff capsule, initial encounter (principal); I10 Essential (primary) hypertension; E11.9 Type 2 diabetes mellitus without complications; K21.9 Gastro-esophageal reflux disease without esophagitis; Z79.84 Long term (current) use of oral hypoglycemic drugs; X50.0XXA Overexertion from strenuous movement or load, initial encounter; Y93.9 Activity, unspecified; Y92.9 Unspecified place or not applicable

== ENCOUNTER 2020-05-28 19:55 | Emergency (ER) | payer MEDICARE, MEDICAID ==
[~2020-05-28 19:55] MED LIST changes: +DICLOFENAC SODI50 MG PO
[2020-05-28 20:30] VITALS: BP 155/74; Ht 162.6 cm
== END 2020-05-28 21:58 | disposition home or self-care (01) ==
LOC: D.ER 19:55
DX: R51.9 Headache, unspecified (principal); E11.9 Type 2 diabetes mellitus without complications; I10 Essential (primary) hypertension; Z79.84 Long term (current) use of oral hypoglycemic drugs

== ENCOUNTER 2020-06-19 06:28 | Day surgery (SDC) | payer MEDICARE, MEDICAID ==
[~2020-06-19] VITALS: Ht 162.6 cm; Wt 89.1 kg
--- NOTE | ~2020-06-19 | OP ---
PATIENT NAME: MORRO KOLB MEDICAL RECORD: [id number] :[birth year] LOCATION:D.OPS ADMISSION DATE: SURGEON: MARYBETH CONWAY MD DATE OF OPERATION: 06/19/2020 PROCEDURE: Colonoscopy. PREOPERATIVE DIAGNOSIS: History of colon cancer. This colonoscopy is a followup from a colonoscopy done in March of 2020. At that time, I did see a polyp in the transverse colon at 83 cm. I did remove the polyp at that time. However, I did tattoo it due to it being large and today a surveillance of that polypectomy site. MEDICATION: Propofol per anesthesia. DESCRIPTION OF PROCEDURE: Colonoscopy was performed. The colonoscope was inserted through the rectum and advanced to the cecum, identified by the ileocecal valve and the appendiceal orifice. The quality of the prep was good. The area of previous polypectomy was visualized due to tattoo ink seen from previous colonoscopy. There was no residual polyp tissue. The area looked clean and free of any residual polyp tissue. The remainder of the exam was normal. FINAL DIAGNOSIS: Normal post-polypectomy site from previous colonoscopy. No residual polyp tissue. PLAN: Advance diet. RECOMMENDATIONS: Repeat colonoscopy in 2 years given her personal history of colon cancer and previous large polyp. TRANSINT:[id number] Voice Confirmation ID: [id number] DOCUMENT ID: [id number] MARYBETH CONWAY MD CC: [id number] DICTATION DATE: 06/19/20953 METEOROLOGY PROFESSOR: 06/19/20 1430 [facility] 06/19/20 [place] [address]
[2020-06-19 07:05] LABS: BASOPHILS 0.4 % (0-2); EOSINOPHILS 3.9 % (0-7); HEMATOCRIT 33.8 % (36.0-48.0); HEMOGLOBIN 10.6 g/dL (12-16); IMMATURE GRANULOCYTES 0.2 % (0-5); LYMPHOCYTE ABS# 2.26 10x3/uL (1.18-3.74); LYMPHOCYTES 39.9 % (15-50); MCH 28.1 pg (26.0-34.0); MCHC 31.4 g/dL (31.0-37.0); MCV 89.7 fL (80.0-100.0); MEAN PLATELET VOLUME 11.3 fL (7.4-10.4); MONOCYTES 6.3 % (2-11); NEUTROPHILS 49.3 % (40-80); PLATELET COUNT 193 10x3/uL (130-400); RBC 3.77 10x6/uL (4.00-5.40); RDW 13.3 % (11.5-14.5); WBC 5.7 10x3/uL (4.8-10.8)
[2020-06-19 07:23] LABS: ANION GAP 13.8 mmol/L (8-16); CALCIUM 8.9 mg/dL (8.5-10.1); CARBON DIOXIDE 28.5 mmol/L (21.0-32.0); CREATININE - SERUM 1.1 mg/dL (0.6-1.3); POTASSIUM - SERUM 3.3 mmol/L (3.5-5.1)
[2020-06-19 08:59] VITALS: BP 134/77; Ht 162.6 cm; Wt 89.1 kg
--- NOTE | 2020-06-19 14:18 | NUR ---
PT COULD NOT REMEMBER HER DAUGHTERS NUMBER TO CALL FOR HER TO PICK HER UP. ULTIMATELY SHE CONTACTED ANOTHER RELATIVE TO COME TO [facility] TO PICK HER UP. IV D/C'D WITH CANNULA INTACT, PRESSURE HELD AND DRSG PLACED.DISCHARGE INSTRUCTIONS GIVEN AND PT VERBALIZED AN UNDERSTANDING. DR. CONWAY HAS VISITED [facility]
== END 2020-06-19 12:10 | disposition home or self-care (01) ==
LOC: D.OPS 06:28
PROVIDERS: Anesthesiology; ATTEND Internal Medicine Gastroenterology
DX: Z85.038 Personal history of other malignant neoplasm of large intestine (principal); R13.10 Dysphagia, unspecified; R93.3 Abnormal findings on diagnostic imaging of other parts of digestive tract